=== PATIENT | male | born 1945 | race Caucasian/White ===

== ENCOUNTER → 2024-01-18 09:52 | Outpatient (REF) | payer MEDICARE, OTHER, SELFPAY ==
[2024-01-18 10:52] LABS: % Basophils 0.4 % (0-2); % Eosinophils 1.2 % (0-6); % Immature Granulocytes 0.4 % (0-0.5); % Lymphocytes 20.3 % (20.5-51.1); % Monocytes 7.5 % (1.7-9.3); % Neutrophils 70.2 % (42.2-75.2); Absolute Eosinophils 0.1 10^3/uL (0-0.7); Absolute Lymphocytes 1.5 10^3/uL (1.2-3.4); Absolute Monocytes 0.5 10^3/uL (0.1-0.6); Absolute Neutrophils 5.1 10^3/uL (1.4-6.5); Hematocrit 41.4 % (39.0-52.0); Hemoglobin 14.2 g/dL (13.0-18.0); Mean Corp Hgb Conc. 34.3 g/dL (33.0-37.0); Mean Corpuscular Hgb 31.4 pg (27.0-31.0); Mean Corpuscular Volume 91.6 fL (80.0-94.0); Mean Platelet Volume 10.6 fL (7.4-10.4); Nucleated Red Blood Cells % 0 % (-); Platelet Count 192 10^3/uL (130-400); Red Blood Cell Count 4.52 10^6/uL (4.70-6.10); Red Cell Dist. Width 12.8 % (11.5-14.5); White Blood Cell Count 7.2 10^3/uL (4.8-10.8)
[2024-01-18 12:25] LABS: Urine Albumin Negative (Neg - Trace); Urine Bilirubin Negative (Negative); Urine Character Clear (Clear); Urine Color Yellow; Urine Glucose Negative (Negative); Urine Ketone Negative (Negative); Urine Leukocyte Negative (Negative); Urine Nitrite Negative (Negative); Urine Occult Blood Negative (Negative); Urine Urobilinogen Negative (Neg - 1+)
[2024-01-18 15:02] LABS: ALT (SGPT) 14 U/L (0-50); AST (SGOT) 18 U/L (17-59); Albumin 4.5 g/dl (3.5-5.0); Alkaline Phosphatase 60 U/L (38-126); Blood Urea Nitrogen 16 mg/dl (9-20); Calcium 9.6 mg/dl (8.4-10.2); Carbon Dioxide 29 mmol/L (22-30); Chloride 105 mmol/L (98-107); Glucose 107 mg/dl (70-99); HDL Cholesterol 39 mg/dl; LDL Cholesterol, Calculated 168 mg/dl; Potassium 4.4 mmol/L (3.5-5.1); Sodium 141 mmol/L (135-145); Total Bilirubin 0.9 mg/dl (0.2-1.3); Total Cholesterol 238 mg/dl (50-199); Total Protein 6.6 g/dl (6.3-8.2); Triglyceride 155 mg/dl (10-149); Very Low Density Lipoprotein 31 mg/dl (0-30); eGFR > 60.00
[2024-01-18 15:50] LABS: PSA, Total - Screen 2.41 ng/ml (0.0-4.0); TSH 1.17 uIU/ml (0.47-4.68)
[2024-01-19 12:28] LABS: tTG IgG Antibody 8.2 EU/ml (0-19)
[2024-01-20 00:08] LABS: IgA 51 mg/dl (70-400)
== END ==
LOC: REG 09:52
PROVIDERS: ATTENDING PHYSICIAN Internal Medicine
DX: E78.00 Pure hypercholesterolemia, unspecified (principal); N40.1 Benign prostatic hyperplasia with lower urinary tract symptoms; G47.33 Obstructive sleep apnea (adult) (pediatric); J44.9 Chronic obstructive pulmonary disease, unspecified; K58.0 Irritable bowel syndrome with diarrhea; Z00.00 Encounter for general adult medical examination without abnormal findings; Z12.5 Encounter for screening for malignant neoplasm of prostate
CPT/HCPCS: 36415; 80053; 80061; 81003; 82784; 83516; 84443; 85025; 86231; G0103

== ENCOUNTER → 2024-04-05 09:34 | Outpatient (REF) | payer MEDICARE, OTHER, SELFPAY ==
[2024-04-05 10:48] LABS: % Basophils 0.4 % (0-2); % Eosinophils 1.7 % (0-6); % Immature Granulocytes 0.5 % (0-0.5); % Lymphocytes 20.6 % (20.5-51.1); % Monocytes 7.6 % (1.7-9.3); % Neutrophils 69.2 % (42.2-75.2); Absolute Eosinophils 0.1 10^3/uL (0-0.7); Absolute Lymphocytes 1.6 10^3/uL (1.2-3.4); Absolute Monocytes 0.6 10^3/uL (0.1-0.6); Absolute Neutrophils 5.2 10^3/uL (1.4-6.5); Hematocrit 42.2 % (39.0-52.0); Hemoglobin 14.1 g/dL (13.0-18.0); Mean Corp Hgb Conc. 33.4 g/dL (33.0-37.0); Mean Corpuscular Hgb 29.7 pg (27.0-31.0); Mean Platelet Volume 10.7 fL (7.4-10.4); Nucleated Red Blood Cells % 0 % (-); Platelet Count 209 10^3/uL (130-400); Red Blood Cell Count 4.74 10^6/uL (4.70-6.10); Red Cell Dist. Width 12.9 % (11.5-14.5); White Blood Cell Count 7.5 10^3/uL (4.8-10.8)
[2024-04-05 11:12] LABS: ALT (SGPT) 21 U/L (0-50); AST (SGOT) 21 U/L (17-59); Albumin 4.5 g/dl (3.5-5.0); Alkaline Phosphatase 52 U/L (38-126); Amylase 88 U/L (30-110); Blood Urea Nitrogen 13 mg/dl (9-20); Calcium 9.8 mg/dl (8.4-10.2); Carbon Dioxide 27 mmol/L (22-30); Chloride 102 mmol/L (98-107); Glucose 101 mg/dl (70-99); Lipase 74 U/L (23-300); Potassium 4.5 mmol/L (3.5-5.1); Sodium 143 mmol/L (135-145); Total Bilirubin 0.7 mg/dl (0.2-1.3); Total Protein 6.8 g/dl (6.3-8.2); eGFR > 60.00
[2024-04-05 11:31] LABS: Erythrocyte Sed Rate 16 mm/hour (0-20)
[2024-04-05 23:25] LABS: IgA 59 mg/dl (70-400)
[2024-04-07 16:40] LABS: Endomysial IgA Antibody Titer <1:10 (<1:10)
== END ==
LOC: REG 09:34
PROVIDERS: ATTENDING PHYSICIAN Internal Medicine
DX: R10.84 Generalized abdominal pain (principal); K58.2 Mixed irritable bowel syndrome
CPT/HCPCS: 36415; 80053; 82150; 82784; 83516; 83690; 85025; 85652; 86231

== ENCOUNTER → 2024-04-21 06:57 | Outpatient (REF) | payer MEDICARE, OTHER, SELFPAY | LOC: HWRAD 06:57 | PROVIDERS: ATTENDING PHYSICIAN Internal Medicine | DX: R10.84 Generalized abdominal pain (principal) | CPT/HCPCS: 76700 ==

== ENCOUNTER → 2024-05-23 11:42 | Outpatient (REF) | payer MEDICARE, OTHER, SELFPAY ==
--- NOTE | 2024-05-23 13:48 | CARDSERVLU ---
Echocardiogram with Lumason completed after protocol screening completed. Allergies verified.
Patent IV site: _Left hand____
IV site flushed with 0.9% NaCl pre and post administration.
Diluted bolus method utilized to enhance visualization of ventricular hammond.
Total volume given: __3.0__ mL
Patient tolerated all procedures well without complications.
#22 krzysztof placed left hand. Lumason given. INT d/c'd. pressure held. no bleeding noted.
== END ==
LOC: RCS 11:42
PROVIDERS: ATTENDING PHYSICIAN Student in an Organized Health Care Education/Training Program
DX: R07.9 Chest pain, unspecified (principal)
CPT/HCPCS: 93017; 71046; 93350; Q9950

== ENCOUNTER → 2024-06-08 10:34 | Outpatient (REF) | payer MEDICARE, OTHER, SELFPAY | LOC: RAD 10:34 | PROVIDERS: ATTENDING PHYSICIAN Student in an Organized Health Care Education/Training Program | DX: E78.2 Mixed hyperlipidemia (principal) | CPT/HCPCS: 75571 ==

== ENCOUNTER → 2024-09-26 06:44 | Outpatient (REF) | payer MEDICARE, OTHER, SELFPAY ==
[2024-09-26 12:11] LABS: % Basophils 0.4 % (0-2); % Eosinophils 0.8 % (0-6); % Immature Granulocytes 0.3 % (0-0.5); % Lymphocytes 14.4 % (20.5-51.1); % Monocytes 7.6 % (1.7-9.3); % Neutrophils 76.5 % (42.2-75.2); Absolute Eosinophils 0.1 10^3/uL (0-0.7); Absolute Lymphocytes 1.1 10^3/uL (1.2-3.4); Absolute Monocytes 0.6 10^3/uL (0.1-0.6); Hematocrit 41.3 % (39.0-52.0); Hemoglobin 13.5 g/dL (13.0-18.0); Mean Corp Hgb Conc. 32.7 g/dL (33.0-37.0); Mean Corpuscular Hgb 30.5 pg (27.0-31.0); Mean Corpuscular Volume 93.4 fL (80.0-94.0); Mean Platelet Volume 10.7 fL (7.4-10.4); Nucleated Red Blood Cells % 0 % (-); Platelet Count 192 10^3/uL (130-400); Red Blood Cell Count 4.42 10^6/uL (4.70-6.10); Red Cell Dist. Width 12.9 % (11.5-14.5); White Blood Cell Count 7.8 10^3/uL (4.8-10.8)
[2024-09-26 14:03] LABS: ALT (SGPT) 15 U/L (0-50); AST (SGOT) 18 U/L (17-59); Albumin 4.9 g/dl (3.5-5.0); Alkaline Phosphatase 60 U/L (38-126); Blood Urea Nitrogen 15 mg/dl (9-20); Calcium 9.6 mg/dl (8.4-10.2); Carbon Dioxide 27 mmol/L (22-30); Chloride 106 mmol/L (98-107); Glucose 92 mg/dl (70-99); Potassium 4.5 mmol/L (3.5-5.1); Sodium 144 mmol/L (135-145); Total Bilirubin 0.8 mg/dl (0.2-1.3); eGFR > 60.00
== END ==
LOC: RCS 06:44
PROVIDERS: ATTENDING PHYSICIAN Internal Medicine Cardiovascular Disease; FAMILY PHYSICIAN Internal Medicine
DX: Z00.8 Encounter for other general examination (principal); R93.1 Abnormal findings on diagnostic imaging of heart and coronary circulation; I25.10 Atherosclerotic heart disease of native coronary artery without angina pectoris; E78.00 Pure hypercholesterolemia, unspecified; R94.39 Abnormal result of other cardiovascular function study; E78.2 Mixed hyperlipidemia; J44.9 Chronic obstructive pulmonary disease, unspecified; R06.89 Other abnormalities of breathing; R07.9 Chest pain, unspecified
CPT/HCPCS: 36415; 78452; 80053; 85025; 93017; A9500

== ENCOUNTER 2024-09-27 09:25 | Day surgery (SDC) | payer MEDICARE, OTHER, SELFPAY ==
[2024-09-27] VITALS (14 sets, daily range): BP systolic 125–152; BP diastolic 66–120; BMI 27.6; BMI 28.0
[2024-09-27] MEDS: NSS 269 ML IV (10:30)
[2024-09-27] MEDS: LOW STRENGTH ASPIRIN 81 MG PO (10:31)
--- NOTE | 2024-09-27 12:59 | ITS.CL.CATH ---
[employer] - Catheterization
Cardiac Catheterization
Procedure Report:
CARDIAC CATHETERIZATION REPORT
Date of Procedure: 09/27/2024
Referring: Arnie Ford M.D.
INDICATION: Accelerating angina, abnormal stress test.
PROCEDURE:
1. Left heart catheterization.
2. Coronary angiography.
3. Successful IFR of the proximal LAD.
A total of 41 minutes of procedural/moderate sedation was utilized. An independent biomedical engineering supervisor was present to assist with and help manage the patient's level of consciousness and physiologic status.
ACCESS:
1. 6 Indian right radial artery using a modified Seldinger technique.
CATHETERS:
1. 5 Indian JR4.
2. 5 Indian JL 3.5.
3. 6 Indian JL 3.5 guiding catheter.
HEMODYNAMIC DATA
Weight (kg): 89.4
AO (s/d/x, mmHg): 145/86/114
LV (s/x mmHg): 148/11
LEFT VENTRICULOGRAPHY: Not performed.
CORONARY ANGIOGRAPHY
Dominance: Right.
Left Main: Normal size, bifurcating vessel. There appears to be some ostial tapering, perhaps 40%. No catheter dampening on engagement.
LAD: Normal size vessel giving rise to 1 significant diagonal. There is a tubular, 60-70% lesion spanning the origin of the first diagonal.
Ramus: Congenitally absent.
Circumflex: Large size, nondominant vessel giving rise to 1 obtuse marginal which subsequently bifurcates into an upper and lower branch. There are luminal irregularities throughout the entire marginal and a discrete, 80% lesion in the ostium of
the upper branch of the obtuse marginal.
RCA: Normal size, dominant vessel. There is a 90% lesion in the proximal RCA. There is a 40% lesion in the distal RCA leading into the ostium of the RPDA.
INTERVENTION(S)
1. Successful IFR of the proximal/mid LAD, demonstrating occlusive disease (IFR = 0.88).
Narrative:
The decision was made to perform physiologic testing. The diagnostic catheter was removed over a wire and exchanged for a(n) 6 Indian EBU 3.5 guiding catheter. The guiding catheter was advanced into the ascending aorta and seated in the left main
coronary artery, though this was somewhat difficult to maintain engagement. Additional heparin was given to obtain an ACT greater than 250 seconds. An iFR wire was zeroed outside of the body, then inserted into the guiding sheath. The wire was
advanced and the transducer was normalized just outside of the guiding catheter tip. The wire was advanced into the mid LAD, beyond the 60-70% LAD lesion. Three iFR measurements were taken. The lesion was determined to be occlusive (0.88).
Closure Device: Vascular band.
Radiation (mGy): 426.19
DAP (cm2.Gy): 26.4420
Fluoroscopy time (minutes): 8.7
CONCLUSIONS
1. Right dominant circulation with a 90% lesion in the proximal RCA, a 40% lesion in the distal RCA leading into the ostium of the RPDA, and 80% lesion in the ostium of the upper branch of OM1 and a hemodynamically significant, tubular 60-70%
lesion of the proximal LAD spanning the origin of the first diagonal (IFR = 0.88).
2. Normal filling pressures (LVEDP = 11 mmHg at 89.4 kg).
RECOMMENDATIONS:
1. Expectant management after cardiac catheterization via right radial approach.
2. Limited weight bearing on the right for one week.
3. Consultation with CT surgery regarding optimal revascularization strategy. In this particular case, percutaneous versus surgical revascularization are both viable options.
4. Start amlodipine 2.5 mg daily for updated OMT. Sublingual nitroglycerin has been prescribed.
5. Aggressive secondary prevention with high-dose, high potency statin. Rosuvastatin increased to 20 mg daily. Goal LDL <55.
6. Update echocardiogram.
Copy to: Arnie Ford M.D., Rsuty Marcum M.D.
Alberto Frias, , FACC, FACP
[2024-09-27] MEDS: NORVASC 2.5 MG PO (13:21)
[2024-09-28 08:38] LABS: ACT-LR - POC > 397 Seconds (116-155)
== END 2024-09-27 16:45 | disposition home or self-care (01) ==
LOC: CATH 09:25
PROVIDERS: ATTENDING PHYSICIAN Internal Medicine Cardiovascular Disease; FAMILY PHYSICIAN Internal Medicine; OTHER PHYSICIAN Internal Medicine Cardiovascular Disease
DX: I25.118 Atherosclerotic heart disease of native coronary artery with other forms of angina pectoris (principal); R94.39 Abnormal result of other cardiovascular function study; E78.00 Pure hypercholesterolemia, unspecified; G47.33 Obstructive sleep apnea (adult) (pediatric); N40.0 Benign prostatic hyperplasia without lower urinary tract symptoms; Z87.891 Personal history of nicotine dependence; Z79.82 Long term (current) use of aspirin
CPT/HCPCS: 93799; 99152; 99153; C1894; C1769; C1887; 85347; 93458; Q9967

== ENCOUNTER 2024-10-05 05:09 | Inpatient (IN) | payer MEDICARE, OTHER, SELFPAY ==
[2024-10-02 12:08] VITALS: BMI 27.4
[2024-10-02 12:41] LABS: % Basophils 0.9 % (0-2); % Eosinophils 0.6 % (0-6); % Immature Granulocytes 0.4 % (0-0.5); % Lymphocytes 15.8 % (20.5-51.1); % Monocytes 6.4 % (1.7-9.3); % Neutrophils 75.9 % (42.2-75.2); Absolute Basophils 0.1 10^3/uL (0-0.2); Absolute Lymphocytes 1.1 10^3/uL (1.2-3.4); Absolute Monocytes 0.4 10^3/uL (0.1-0.6); Absolute Neutrophils 5.2 10^3/uL (1.4-6.5); Hematocrit 41.1 % (39.0-52.0); Hemoglobin 13.9 g/dL (13.0-18.0); Mean Corp Hgb Conc. 33.8 g/dL (33.0-37.0); Mean Corpuscular Hgb 31.2 pg (27.0-31.0); Mean Corpuscular Volume 92.4 fL (80.0-94.0); Mean Platelet Volume 10.8 fL (7.4-10.4); Nucleated Red Blood Cells % 0 % (-); Platelet Count 194 10^3/uL (130-400); Red Blood Cell Count 4.45 10^6/uL (4.70-6.10); Red Cell Dist. Width 12.8 % (11.5-14.5); White Blood Cell Count 6.9 10^3/uL (4.8-10.8)
[2024-10-02 12:59] LABS: INR 1.06; PT 14.1 Sec (11.4-14.6)
[2024-10-02 13:00] LABS: APTT 36.6 Sec (23.4-35.0)
[2024-10-02 13:33] LABS: ALT (SGPT) 15 U/L (0-50); AST (SGOT) 17 U/L (17-59); Albumin 4.9 g/dl (3.5-5.0); Alkaline Phosphatase 63 U/L (38-126); Blood Urea Nitrogen 11 mg/dl (9-20); Calcium 9.4 mg/dl (8.4-10.2); Carbon Dioxide 27 mmol/L (22-30); Chloride 105 mmol/L (98-107); Direct Bilirubin 0.2 mg/dl (0.0-0.4); Estimated Creatinine Clearance 93 ml/min; Glucose 103 mg/dl (70-99); Potassium 4.9 mmol/L (3.5-5.1); Sodium 142 mmol/L (135-145); Total Bilirubin 0.8 mg/dl (0.2-1.3); eGFR > 60.00
[2024-10-02 13:39] LABS: Urine Albumin Negative (Neg - Trace); Urine Bilirubin Negative (Negative); Urine Character Clear (Clear); Urine Color Yellow; Urine Glucose Negative (Negative); Urine Ketone Negative (Negative); Urine Leukocyte Negative (Negative); Urine Nitrite Negative (Negative); Urine Occult Blood 2+ (Negative); Urine Urobilinogen Negative (Neg - 1+); Urine pH 6.5 (5.0-9.0)
--- NOTE | 2024-10-02 13:54 | CM ---
Chart reviewed. Met with the patient and his in PAT. Reviewed preoperative and postoperative instructions and restrictions, along with showering guidelines. Gave patient 2 soaps. Patient is independent of ADLS, lives with his in a 2
STH, 4-5 LEONOR, 0 DME. Plan is for the patient to return home with CT Transitional RN.
[2024-10-02 14:00] LABS: Glycohemoglobin (HgbA1c) 5.5 % (4.0-5.6)
[2024-10-02 14:42] LABS: Urine Squamous Cell 0-2 /LPF (Few)
[2024-10-02 14:43] LABS: Urine Amorphous Seen
[2024-10-02 14:44] LABS: Urine Red Blood Cell 0-2 /HPF (0-2); Urine White Cell 0-2 /HPF (0-5)
[2024-10-05] VITALS (17 sets, daily range): BP systolic 86–132; BP diastolic 58–92; BMI 26.9
[2024-10-05] MEDS: MAGNESIUM OXIDE 500 MG PO (05:39)
[2024-10-05] MEDS: PROTONIX 40 MG PO (05:39)
[2024-10-05] MEDS: LOPRESSOR 25 MG PO (05:39)
[2024-10-05] MEDS: BACTROBAN 2% OINTMENT 1 APPLIC NASAL ×2 (05:40→20:20)
--- NOTE | 2024-10-05 05:48 | PTCARENOTE ---
Patient admitted to CVICU. Confirmed 2 CHG showers. CHG cloth bath performed. Lab drawn. Patient clipped. Meds reconciliation confirmed. Admission questions asked. Awaiting CVOR.
--- NOTE | 2024-10-05 06:35 | PTCARENOTE ---
Taken to CVOR @[id number].
[2024-10-05 07:40] LABS: ACT+ - POC 101 Seconds (82-134)
[2024-10-05 08:20] LABS: Urine Albumin 1+ (Neg - Trace); Urine Bilirubin Negative (Negative); Urine Character Clear (Clear); Urine Color Yellow; Urine Glucose Negative (Negative); Urine Ketone Negative (Negative); Urine Leukocyte Negative (Negative); Urine Nitrite Negative (Negative); Urine Occult Blood 4+ (Negative); Urine Specific Gravity 1.015 (<1.030); Urine Urobilinogen Negative (Neg - 1+)
[2024-10-05 08:54] LABS: Urine Amorphous Seen
[2024-10-05 08:55] LABS: Urine White Cell 0-2 /HPF (0-5)
[2024-10-05 09:28] LABS: ACT+ - POC 773 Seconds (82-134)
[2024-10-05 09:49] LABS: B.E. - POC -1.7 mmol/L; Glucose - POC 100 mg/dl (70-99); HCO3 - POC 24 mmol/L (21-28); Hematocrit - POC 38 % PCV (42-52); Hemodilution- POC No; Hemoglobin Calculated - POC 12.9; Ionized Calcium - POC 1.14 mmol/L (1.15-1.33); Lactate - POC 0.48 mmol/L (0.36-0.75); O2 Saturation %Calculated-POC 99.7 % (94-98); PCO2 - POC 41 mmHg (35-48); PO2 - POC 204 mmHg (83-108); POC Comment PRE; Potassium - POC 3.8 mmol/L (3.5-5.1); Sodium - POC 145 mmol/L (136-145); Specimen Type - POC Arterial; pH - POC 7.37 (7.35-7.45)
[2024-10-05 10:27] LABS: B.E. - POC 0.4 mmol/L; Glucose - POC 149 mg/dl (70-99); HCO3 - POC 25 mmol/L (21-28); Hematocrit - POC 39 % PCV (42-52); Hemodilution- POC Yes; Hemoglobin Calculated - POC 13.2; Ionized Calcium - POC 0.96 mmol/L (1.15-1.33); Lactate - POC < 0.30 mmol/L (0.36-0.75); PCO2 - POC 41 mmHg (35-48); PO2 - POC 372 mmHg (83-108); POC Comment CPB; Potassium - POC 4.1 mmol/L (3.5-5.1); Sodium - POC 141 mmol/L (136-145); Specimen Type - POC Arterial
[2024-10-05 10:40] LABS: ACT+ - POC 625 Seconds (82-134)
--- NOTE | 2024-10-05 11:00 | CM ---
Chart reviewed. Patient is in the OR today. Patient is independent of ADLS, lives with his in a 2 STH, 4-5STE, 0 DME. Plan is for the patient to return home with CT Transitional RN. CM to follow
[2024-10-05 11:02] LABS: B.E. - POC 2.3 mmol/L; Glucose - POC 176 mg/dl (70-99); HCO3 - POC 27 mmol/L (21-28); Hematocrit - POC 31 % PCV (42-52); Hemodilution- POC Yes; Hemoglobin Calculated - POC 10.6; Ionized Calcium - POC 0.99 mmol/L (1.15-1.33); Lactate - POC 0.64 mmol/L (0.36-0.75); O2 Saturation %Calculated-POC 99.8 % (94-98); PCO2 - POC 40 mmHg (35-48); PO2 - POC 237 mmHg (83-108); POC Comment CPB; Potassium - POC 5.2 mmol/L (3.5-5.1); Sodium - POC 140 mmol/L (136-145); Specimen Type - POC Arterial; pH - POC 7.44 (7.35-7.45)
[2024-10-05 11:17] LABS: ACT+ - POC 715 Seconds (82-134)
[2024-10-05 11:32] LABS: B.E. - POC 0.2 mmol/L; Glucose - POC 146 mg/dl (70-99); HCO3 - POC 25 mmol/L (21-28); Hematocrit - POC 31 % PCV (42-52); Hemodilution- POC Yes; Hemoglobin Calculated - POC 10.5; Ionized Calcium - POC 1.05 mmol/L (1.15-1.33); Lactate - POC 1.14 mmol/L (0.36-0.75); O2 Saturation %Calculated-POC 99.9 % (94-98); PCO2 - POC 40 mmHg (35-48); PO2 - POC 327 mmHg (83-108); POC Comment CPB; Potassium - POC 4.1 mmol/L (3.5-5.1); Sodium - POC 142 mmol/L (136-145); Specimen Type - POC Arterial; pH - POC 7.41 (7.35-7.45)
[2024-10-05 11:41] LABS: ACT+ - POC > 1003 Seconds (82-134)
[2024-10-05 11:42] LABS: ACT+ - POC 530 Seconds (82-134)
[2024-10-05 12:28] LABS: B.E. - POC -0.7 mmol/L; Glucose - POC 126 mg/dl (70-99); HCO3 - POC 23 mmol/L (21-28); Hematocrit - POC 31 % PCV (42-52); Hemodilution- POC Yes; Hemoglobin Calculated - POC 10.5; Ionized Calcium - POC 1.04 mmol/L (1.15-1.33); Lactate - POC 1.89 mmol/L (0.36-0.75); O2 Saturation %Calculated-POC 99.7 % (94-98); PCO2 - POC 36 mmHg (35-48); PO2 - POC 189 mmHg (83-108); POC Comment WARM; Potassium - POC 4.5 mmol/L (3.5-5.1); Sodium - POC 142 mmol/L (136-145); Specimen Type - POC Arterial; pH - POC 7.43 (7.35-7.45)
[2024-10-05 12:33] LABS: ACT+ - POC 137 Seconds (82-134)
--- NOTE | 2024-10-05 13:03 | W.CVOR.SURPR ---
CVOR Surgeon Immed Pre Op
-
I have examined this patient prior to performance of the scheduled procedure.
The patient's condition is unchanged from the time of the dictated/written History and
Physical and the patient is able to undergo the scheduled procedure.
--- NOTE | 2024-10-05 13:03 | W.IMMPOSTOP ---
Addendum entered and electronically signed by Boogie Veloz MD 10/05/24 15:00:
[id number]
Original Note:
Surgical Immed Post Op Note
-
CARDIAC SURGERY OPERATIVE NOTE:
Preoperative Dx:
MVCAD
Escalating/ unstable angina
Postoperative Dx:
Same
Procedures:
1) Median sternotomy
2) Takedown of SUSU (narrow pedicle)
3) Endoscopic harvest/prep of RLE GSV
4) Pericardial patch repair of RA
5) CABG x 4 (SUSU to LAD, GSV to RPDA, sGSV to OM upper & lower branches)
6) ELAA (45mm AtriClip)
Surgeon:
Boogie Veloz M.D.
Assistants:
Michel Bolton P.A.-C.; optometry assistant throughout
Jonelle Tabor P.A.-C.; endoscopic harvest/prep of RLE GSV
Anesthesia:
Zbigniew Reid M.D. and Sierra ClemonsR.N.A.
Perfusion:
Sierra TiradoCGhislaineP.; XC: 90min, CPB: 139min
Findings:
SUSU was healthy appearing conduit w/ very brisk flow; slightly small ELD at 2.25mm
GSV was healthy appearing conduit w/ ELD 3.0-3.5mm
RA tissue was extremely friable, after venous cannulation w/ typical repositioning of the venous cannula, a large tear occurred on the medial/cephalad margin of the RA toward to the right AV groove. CPB established and RA was patch repaired w/
pericardium and running 6-0 prolene suture w/ good result.
LAD was visible on the epicardial surface, no sig calcifications at distal midpoint anastomosis, ELD congruent w/ SUSU at ~2.25mm
OM branches were both visible on the epicardial surface, the inferior branch was larger (~2.75mm) than the upper branch (~1.65mm) - bypass performed to both in sequential fashion
RPDA was visible on the epicardial surface, no sig calcifications at proximal third anastomosis, ELD 2.75mm
MARISSA was large and had windsock morphology
Transient pacing required prior to re-establishment of sustained sinus
Aortic cannulation site required repair w/ 2 4-0 prolene pledgetted sutures post decannulation
Excellent flow in all grafts
Post-ALEXANDER: normal biventricular function, no significant VHD, MARISSA confirmed excluded
Complications:
No significant
RA required repair as did the aortic cannulation site
Transfusions:
None
Implants:
Epicardial V-wire x 1
[address]
CT x 4 (B/L pleural, inferior mediastinal, superior mediastinal)
Sternal wires x 8
Sternal 'X' plate w/ 8 - 12mm screws
Sternal 'Square' plate w/ 4 - 10mm screws
Condition:
62 isoelectric sinus; 132/80, CVP 19, 100%
GTTS: nicardipine 2.5, precedex 0.5
Stable/guarded to CVICU
[2024-10-05 13:08] LABS: B.E. - POC -2.3 mmol/L; Glucose - POC 102 mg/dl (70-99); HCO3 - POC 23 mmol/L (21-28); Hematocrit - POC 30 % PCV (42-52); Hemodilution- POC Yes; Hemoglobin Calculated - POC 10.1; Ionized Calcium - POC 1.21 mmol/L (1.15-1.33); Lactate - POC 1.23 mmol/L (0.36-0.75); PCO2 - POC 39 mmHg (35-48); PO2 - POC 529 mmHg (83-108); POC Comment POST; Potassium - POC 3.7 mmol/L (3.5-5.1); Sodium - POC 146 mmol/L (136-145); Specimen Type - POC Arterial; pH - POC 7.37 (7.35-7.45)
[2024-10-05 13:09] LABS: ACT+ - POC 129 Seconds (82-134)
[2024-10-05 13:49] LABS: Glucose - Point of Care 107 mg/dl (70-99)
[2024-10-05 13:55] LABS: B.E. -0.3 mmol/L; Ionized Calcium 1.15 mMOL/L (1.15-1.33); PCO2 37 mmHg (35-48); PO2 166 mmHg (83-108); Potassium 3.7 mMOL/L (3.5-5.1); Sodium 137 mMOL/L (136-145); pH 7.42 (7.35-7.45)
--- NOTE | 2024-10-05 13:57 | W.PN.UPDATE ---
Update Note
Progress Note Update
79 year old male electively admitted 10/05/24 for CABG
IV fluids:
Crystalloid:�
U.O.:� 700
Blood:� none
Wires:� bipolar V-wire
Drips: Insulin, Precedex
�
NEURO: sedated, pupils +2mm B/L
RESP: #8OT @23cm> 550/40%/14/5. Lungs clear B/L. 2 mediastinal (0cc on arrival) and R/L pleural (0cc on arrival) chest tubes to -20cm suction. Sanguineous drainage, no air leak, no crepitus
CV: RRR +S1, S2, no S3, no�rub, no murmur. Aquacell to median sternotomy. RIJ w/Slik
ABD: round, soft, no BS
EXT: no edema, +2/4 DP pulses B/L, no femoral bruit, RLE FLORESITA wrap intact; left radial A-line intact
: Hathaway with clear yellow urine
�,
A/P: POD #0 s/p CABG x 4 (SUSU to LAD, GSV to RPDA, sGSV to OM upper & lower branches), ELAA (45mm AtriClip), Pericardial patch repair of RA
ALEXANDER: EF�55-60%
- wean and extubate
- ok to pull bipolar V-wire prior to chest tube removal
# CAD
- will require ASA, Plavix, statin, Zetia. beta-mitch
�
# acute surgical blood loss anemia-expected
- trend CBC
�
# Depression
- continue Sertraline
�
# BPH
- resume�Finesteride as BP permits
[2024-10-05 14:02] LABS: Hematocrit 32.4 % (39.0-52.0); Hemoglobin 11.2 g/dL (13.0-18.0); Platelet Count 140 10^3/uL (130-400)
--- NOTE | 2024-10-05 14:04 | PTCARENOTE ---
received pt from the CVOR into 226, sinus rhythm on tele w HR 60-70, right radial aminata leveled and zeroed BP 110/64, + peripheral pulses, right IJ cordis w slick, CVP 12. Epicardial pacing wire set to a back up 30/10. Lungs diminished, ETT #8/
right lip, VENT SETTINGS: SIMV 40%/550/14/+5, POX 99%, CT x4 w red drainage, melendez draining yellow.
DRIPS: Precedex 0.5
Cardene 2.5
[2024-10-05 14:10] LABS: Blood Urea Nitrogen 15 mg/dl (9-20); Estimated Creatinine Clearance 93 ml/min; Glucose 106 mg/dl (70-99); Magnesium 2.9 mg/dl (1.6-2.3)
[2024-10-05 14:14] LABS: INR 1.44; PT 18.1 Sec (11.4-14.6)
[2024-10-05] MEDS: KCL 50 IV ×2 (14:14→15:05)
[2024-10-05 14:15] LABS: APTT 33.6 Sec (23.4-35.0)
[2024-10-05] MEDS: ANCEF 10 IV ×2 (14:15→14:16)
[2024-10-05] MEDS: NSS 500 IV (14:15)
[2024-10-05] MEDS: NEURONTIN PO ×2 (14:15→15:45)
[2024-10-05] MEDS: TYLENOL PO (14:16)
[2024-10-05] MEDS: CALCIUM GLUCONATE 100 IV (14:55)
[2024-10-05 15:05] LABS: Glucose - Point of Care 135 mg/dl (70-99)
--- NOTE | 2024-10-05 15:13 | CON.INTV ---
Consultation
Consultation Request
Date/Time Consultation Requested: 10/05/2024
Date/Time Consultation Performed: 10/05/2024
Requesting Provider: Boogie Veloz
Performing Provider: Fidencio Garcia
Reason for Consultation: Post CABG
Medical History
-
Chief Complaint: Chest discomfort
History of Present Illness:
Patient is a 79-year-old gentleman with history of hyperlipidemia, mild COPD who had mild exertional chest discomfort last year and had a stress test which was unremarkable. In view of persistent symptoms patient subsequently had a CT coronary
artery with elevated calcium score which was followed by cardiac catheterization which showed significant coronary artery disease. He was subsequently referred to cardiothoracic surgery for further input. Patient was admitted to the hospital for
an elective coronary artery bypass graft and postsurgery was admitted to CVICU. Corporate Sales Representative consult was requested for further input. During my evaluation, patient had been off all pressors and off sedation and had started to wake up. He was
placed on pressure support trial which she was tolerating well.
Past medical history. Hyperlipidemia, osteoarthritis, BPH, mild obstructive sleep apnea, mild COPD, osteoporosis.
Past surgical history. Hernia repair, inguinal, bilateral. Cataract surgery.
Family history. Mother had small cell lung cancer. Maternal aunt also had lung cancer.
Social history. Patient is a former smoker, quit in 1980.
Allergies / Home Medications
Allergies
Allergy/AdvReac Type Severity Reaction Status Date / Time
shellfish derived Allergy Severe Hives Verified 09/27/24 10:27
iodine Allergy Unknown Unknown Verified 09/27/24 10:27
NOT.[id number] - Not Allergy Unknown Uncoded 09/27/24 10:28
Converted 85. See Text.
Home Medications
�Medication �Instructions �Recorded �Confirmed �Last Taken �Type
Lactobacillus acidophilus 10 10,000 mmu cells PO DAILY 09/27/24 09/27/24 09/30/24 08:00 History
billion cell capsule (Probiotic)
Vital Liver Support 1 cap PO DAILY 09/27/24 09/30/24 08:00 History
Vitamin Tocotrienols 125 mg PO DAILY 09/27/24 09/27/24 09/30/24 08:00 History
amlodipine 2.5 mg tablet 2.5 mg PO DAILY #30 tabs 09/27/24 10/02/24 08:00 Rx
apple cider vinegar 300 mg tablet 300 mg PO DAILY 09/27/24 09/27/24 09/30/24 08:00 History
ascorbic acid (vitamin C) 500 mg 500 mg PO DAILY 09/27/24 09/27/24 07/07/24 08:00 History
tablet (Vitamin C)
aspirin 81 mg tablet 81 mg PO DAILY 09/27/24 09/27/24 10/04/24 08:00 History
cholecalciferol (vitamin D3) 50 50 mcg PO DAILY 09/27/24 09/27/24 07/07/24 08:00 History
mcg (2,000 unit) capsule (Vitamin
D3)
coQ10 (ubiquinol) 100 mg capsule 100 mg PO DAILY 09/27/24 09/27/24 09/30/24 18:00 History
finasteride 5 mg tablet 5 mg PO DAILY 09/27/24 09/27/24 10/04/24 23:00 History
metoprolol succinate 25 mg 12.5 mg PO DAILY 09/27/24 09/27/24 10/04/24 18:00 History
tablet,extended release 24 hr
nitroglycerin 0.4 mg sublingual 0.4 mg sublingual [id number] PRN 09/27/24 Unknown Rx
tablet chest pain #25 tabs
rosuvastatin 20 mg tablet 20 mg PO DAILY #30 tabs 09/27/24 10/04/24 23:00 Rx
sertraline 100 mg tablet 100 mg PO DAILY 09/27/24 09/27/24 10/04/24 23:00 History
Review of Systems
-
Unable to Obtain full review of systems at this time due to: Patient Intubation
Vitals / Labs / Diagnostic Testing
Vital Signs
Temp Pulse Resp BP Pulse Ox
96 F L 62 14 91/66 98
10/05/24 15:00 10/05/24 15:00 10/05/24 15:00 10/05/24 15:00 10/05/24 15:00
Lab Data
10/05/24 13:46
Laboratory Results
10/05/24
13:46
PT 18.1 H
INR 1.44
APTT 33.6
pH 7.42
pCO2 37
pO2 166 H
HCO3 24.0
O2 Delivery Level
Microbiology
10/02/24 12:21 Nose MRSA Screen - Final
No Methicillin Resistant Staphylococcus aureus isolated.
Diagnostic Testing:
Physical Exam
-
HEENT: Normocephalic
Cardiovascular: S1/S2
Respiratory: Clear and Non-Labored Respirations
GI: Soft and Non Distended
Neurology: Awake
Skin: Warm
General: Comfortable
Assessment
-
Patient is a 79-year-old gentleman with history of coronary artery disease, s/p CABG x 4, left atrial appendage exclusion, POD #0
Off pressors now
ECHO reviewed with normal EF
Management of chest tubes per primary service
Intubated/off sedation. Tolerating PSV/CPAP 5/5 well, tidal volumes 450ml+, RR 18, anticipate extubation soon.
Pain control
RASS goal of 0 to -1
ABG(s) reviewed. 7.42, 37, 166.
CXR with no obvious opacities/infiltrates, low lung volumes, ETT in good position, lines/tubes in place
Extubate per protocol
Maintain supplement oxygen as needed
Aspiration precautions
Encouraged incentive spirometry, OOB/ambulation/early mobility
Advance diet as tolerated following extubation
GI prophylaxis: Protonix
Monitor critical I/O's
Hathaway/chest tube output
Hb/platelets postoperatively awaited
Trend CBC for now
Can transfuse if indicated for Hb <7, plt <50 in surgical patients
DVT prophylaxis including SCDs
Insulin protocol initiated and ongoing
Transition to SQ/off as indicated per team
Other medial diagnoses:
-ISRAEL, mild. On Home CPAP, typical EPAP 8-5 cm of H2O. Patient brought his own unit. If drowzy post extubation, recommend CPAP
-Mild obstructive airway disease(COPD), ex-smoker. Follows up with Dr. Romano at [facility]. PRN Albuterol, rare use at home. Resume out patient follow up
Critical Care time 61 mins -- The patient is admitted for acute critical illness for the treatment of vital organ failure and/or prevention of further life-threatening conditions. Total care includes time spent in review of history, physical exam,
medications, hemodynamic/ventilator parameters, laboratory data, imaging and discussion with house staff, pharmacy, respiratory therapy, jig bore operator, and nursing.
Data:
ALEXANDER 09/2024: Normal left ventricular systolic function with LVEF of 60-65%. No regional
wall motion abnormalities.
Normal right ventricular function.
Functionally normal aortic valve.
Normal tricuspid valve.
Trace to mild mitral regurgitation.
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
Normal left atrial appendage.
ECHO 07/2024: Normal biventricular size and systolic function without regional wall motion abnormality.
No significant valvular disease.
No significant change since the prior study of 08/30/2021.
Cardiac Cath 09/2024: 1. Right dominant circulation with a 90% lesion in the proximal RCA, a 40% lesion in the distal RCA leading into the ostium of the RPDA, and 80% lesion in the ostium of the upper branch of OM1 and a hemodynamically
significant, tubular 60-70% lesion of the proximal LAD spanning the origin of the first diagonal (IFR = 0.88).
2. Normal filling pressures (LVEDP = 11 mmHg at 89.4 kg).
CXR 09/2024: Unremarkable
CT Chest 09/2024: 1. No CT evidence for an acute cardiopulmonary process.
2. Mild centrilobular emphysema.
4. Moderate coronary artery calcifications.
[2024-10-05] MEDS: PACERONE PO (15:45)
--- NOTE | 2024-10-05 15:47 | PTCARENOTE ---
pt placed on CPAP wean by RT at 15:30
[2024-10-05 16:03] LABS: B.E. -1.8 mmol/L; HCO3 23.1 mmol/L (21-28); Ionized Calcium 1.18 mMOL/L (1.15-1.33); PCO2 39 mmHg (35-48); PO2 124 mmHg (83-108); Potassium 4.8 mMOL/L (3.5-5.1); Sodium 136 mMOL/L (136-145); pH 7.38 (7.35-7.45)
[2024-10-05 16:04] LABS: Glucose - Point of Care 118 mg/dl (70-99)
[2024-10-05] MEDS: LR 250 ML IV ×2 (16:09→17:10)
--- NOTE | 2024-10-05 16:15 | PTCARENOTE ---
pt extubated to 6L NC, pox 98%.
--- NOTE | 2024-10-05 16:18 | RESPNOTE ---
Respiratory: patient extubated @1615 without incident. No stridor, no wheeze.
--- NOTE | 2024-10-05 16:37 | W.PN.CD ---
Addendum entered and electronically signed by Houston Carrero MD 10/07/24 09:54:
I saw and examined the patient.
The PACKAGING SALES REPRESENTATIVE's note was reviewed and I agree with the note.
Comment: Cont routine post-op care
Original Note:
Today's Communication / Plan
-
Close post-op monitoring and care per CVICU/CT surgery protocol
Impression / Plan
-
79 y/o male (patient of Dr. Ford) with dyslipidemia, COPD, and multivessel CAD who is now s/p CABG.
CAD:
-s/p CABG x 4 (SUSU to LAD, GSV to RPDA, sGSV to OM upper & lower branches), ELAA (45mm AtriClip), Pericardial patch repair of RA, Dr. Veloz 10/05/24
-extubated, on O2
-CT's, al, pacer wire in place
-post-op EKG and tele SR
-intra-op ALEXANDER EF 60-65%
-ASA, statin, BB
Dyslipidemia:
-statin
COPD:
-mild, stable without wheezing
Physical Exam
Vital Signs/Labs
Vital Signs
Temp Pulse Resp BP Pulse Ox
97 F 73 25 90/63 97
10/05/24 16:00 10/05/24 16:15 10/05/24 16:15 10/05/24 16:00 10/05/24 16:15
10/05/24 13:46
PT 18.1 Sec (11.4-14.6) H 10/05/24 13:46
INR 1.44 10/05/24 13:46
APTT 33.6 Sec (23.4-35.0) 10/05/24 13:46
Magnesium 2.9 mg/dl (1.6-2.3) H 10/05/24 13:46
Physical Exam
Constitutional: No acute distress
EENT: Anicteric
Cardiovascular: Rhythm & rate is regular
Respiratory: Respiratory effort normal, Lungs clear to auscul. and Other (on O2 by NC)
Neuro/Psych: Alert
Other: Skin (midsternal incision CDI)
Data Reviewed
-
Date of Service: October 05, 2024
EKG: Tracing Personally Visualized and interpreted (SR) and Other (SR)
Echo: Report Reviewed by me (intra-op ALEXANDER EF as noted)
Labs: Labs Reviewed by me
[2024-10-05] MEDS: OFIRMEV 100 IV (16:44)
[2024-10-05 17:07] LABS: Glucose - Point of Care 96 mg/dl (70-99)
[2024-10-05] MEDS: NEURONTIN 100 MG PO ×2 (17:37→21:54)
[2024-10-05] MEDS: LOW STRENGTH ASPIRIN 81 MG PO (17:38)
[2024-10-05 17:42] LABS: Hematocrit 32.5 % (39.0-52.0); Hemoglobin 11.4 g/dL (13.0-18.0); Platelet Count 165 10^3/uL (130-400)
[2024-10-05 17:50] LABS: Glucose - Point of Care 98 mg/dl (70-99)
[2024-10-05] MEDS: DILAUDID 0.5 MG IV (17:53)
[2024-10-05 19:55] LABS: Glucose - Point of Care 108 mg/dl (70-99)
[2024-10-05] MEDS: ANCEF 5 IV (20:12)
[2024-10-05] MEDS: SENOKOT-S 1 TABLET PO (20:13)
[2024-10-05] MEDS: ROXICODONE 5 MG PO (20:13)
[2024-10-05] MEDS: TYLENOL 1000 MG PO (21:54)
[2024-10-05] MEDS: LIPITOR 40 MG PO (21:54)
[2024-10-05 21:58] LABS: Glucose - Point of Care 99 mg/dl (70-99)
[2024-10-05] MEDS: TORADOL 15 MG IV (22:54)
--- NOTE | 2024-10-05 23:00 | PTCARENOTE ---
Received pt from [facility]. RN Iris is on orientation until 2299 and is assigned to pt as well. Pt is s/p of CABGx4 and MARISSA clip with Dr. Veloz. pt is AAOx4, 11/21 pain, see MAR for pain management. pt is resting comfortably in bed. NSR on monitor.
VSS. heart sounds and rub audible, radial and DP pulses palpable, temp epicardial V-wires are set to VVI 30/10/2. lungs diminished at b/l bases, spo2 100% on 4LNC, pt was extubated at 1615, x2 MS and right/left pleural CT to -20 wall suction, no air
leaks, no tidaling, no crepitus. hypoactive BS x4 quadrants, abdomen soft non tender. pr voiding clear yellow urine via melendez catheter. right IJ cordis/slick, right radial A-line, and PIV, all maintained, leveled, and zeroed. insulin gtt infusing.
surgical sites maintained. call ariel within reach. will continue to monitor.
[2024-10-05 23:57] LABS: Glucose - Point of Care 115 mg/dl (70-99)
[2024-10-06] VITALS (34 sets, daily range): BP systolic 79–123; BP diastolic 50–69; PULSE 78; O2SAT 98; BMI 27.2
--- NOTE | 2024-10-06 01:51 | W.PN.CT ---
Today's Communication / Plan
-
-POD #1
-on 5 L NC, shallow breathing from pain, down to 2 L this AM
-BP at goal SBP < 130, off cardene
-CT outputs: 2 meds 45/140, 2 pleural 50/145 in 12/24 hrs
-UOP 490/1265 in 12/24 hrs
-long Qtc 480ms - follow, check ECG in am
-de-lined
-continue insulin
-current meds (asa, lipitor, Plavix, ppi)
-multimodal pain management
-encourage IS, OOB
Assessment / Plan
-
MVCAD s/p CABG x 4 (SUSU to LAD, GSV to RPDA, sGSV to OM upper & lower branches), ELAA (45mm AtriClip), Pericardial patch repair of RA 10/05/[address] Veloz POD #1
ALEXANDER: EF�60%, normal biventricular function, no significant VHD, MARISSA confirmed excluded
EKG NSR with 1st degree block, PAC, QTc 480 ms
-MVCAD
-HLD
-OA
-Depression
-BPH
-ISRAEL on CPAP
-mild COPD
-IBS
-pre-diabetic
acute blood loss anemia - stable
acute post op atelectasis
acute post op cardiac rub /pericarditis
Subjective
-
Date of Service: October 06, 2024
Objective Data
-
PT 18.1 Sec (11.4-14.6) H 10/05/24 13:46
INR 1.44 10/05/24 13:46
APTT 33.6 Sec (23.4-35.0) 10/05/24 13:46
Vital Signs
Vital Signs
Temp Pulse Resp BP Pulse Ox
99.3 F 73 22 103/62 98
10/06/24 01:00 10/06/24 01:10 10/06/24 01:10 10/06/24 01:00 10/06/24 01:10
CT Intake/Output/Weight
10/05/24 10/05/24 10/06/24
06:59 18:59 06:59
Intake Total 764.7 / 1129.9 365.2 / 1129.9
Output Total 965 / 1420 455 / 1420
Balance -200.3 / -290.1 -89.8 / -290.1
SaO2: 98
Physical Exam
-
General: Awake and Oriented
Cardiovascular: Regular rate & rhythm and Rub
Respiratory: Clear and Equal
Sternum: Stable
Incision: Clean, Dry and Intact
Extremities: No Edema and No Erythema
Data Reviewed
-
Lab Results: Results Reviewed
Medications: Active Meds Reviewed
Chest X-Ray: Report Reviewed
ECG: Report Reviewed
[2024-10-06 02:12] LABS: Glucose - Point of Care 88 mg/dl (70-99)
[2024-10-06 02:33] LABS: Hematocrit 32.1 % (39.0-52.0); Hemoglobin 11.1 g/dL (13.0-18.0); Mean Corp Hgb Conc. 34.6 g/dL (33.0-37.0); Mean Corpuscular Hgb 31.7 pg (27.0-31.0); Mean Corpuscular Volume 91.7 fL (80.0-94.0); Mean Platelet Volume 11.3 fL (7.4-10.4); Platelet Count 159 10^3/uL (130-400); Red Cell Dist. Width 12.9 % (11.5-14.5); White Blood Cell Count 15.3 10^3/uL (4.8-10.8)
[2024-10-06 02:56] LABS: Blood Urea Nitrogen 15 mg/dl (9-20); Calcium 8.2 mg/dl (8.4-10.2); Carbon Dioxide 23 mmol/L (22-30); Chloride 108 mmol/L (98-107); Estimated Creatinine Clearance 93 ml/min; Glucose 86 mg/dl (70-99); Magnesium 2.3 mg/dl (1.6-2.3); Potassium 4.3 mmol/L (3.5-5.1); Sodium 139 mmol/L (135-145); eGFR > 60.00
--- NOTE | 2024-10-06 03:30 | PTCARENOTE ---
Pt assessment unchanged. NSR on monitor. VSS. labs drawn, EKG obtained. pt delined.
[2024-10-06 03:52] LABS: Glucose - Point of Care 97 mg/dl (70-99)
[2024-10-06] MEDS: TORADOL 15 MG IV ×2 (04:54→12:01)
[2024-10-06] MEDS: ANCEF 5 IV ×2 (04:54→12:02)
[2024-10-06] MEDS: TYLENOL 1000 MG PO ×3 (04:54→22:44)
[2024-10-06 06:01] LABS: Glucose - Point of Care 111 mg/dl (70-99)
--- NOTE | 2024-10-06 07:42 | W.PN.ANS.POP ---
Anesthesia Post Operative
- Anesthesia Post Op Note
Vital Signs Stable-See Nursing Note: Yes
Airway Patent: Yes
Adequate Pain Control: Yes
Change in Mental Status: No
Current Postoperative Nausea & Vomiting: No
Anesthesia Complications: No
General Anesthetic Recall: No
Unplanned Admission: No
Post Op Hydration Adequate: Yes
[2024-10-06 08:16] LABS: Glucose - Point of Care 97 mg/dl (70-99)
[2024-10-06] MEDS: SENOKOT-S 1 TABLET PO ×2 (08:23→20:21)
[2024-10-06] MEDS: LOW STRENGTH ASPIRIN 81 MG PO (08:23)
[2024-10-06] MEDS: PLAVIX 75 MG PO (08:23)
[2024-10-06] MEDS: PROTONIX 40 MG PO (08:23)
[2024-10-06] MEDS: MAGNESIUM OXIDE 500 MG PO ×2 (08:23→20:20)
[2024-10-06] MEDS: VITAMIN C 500 MG PO (08:23)
[2024-10-06] MEDS: NEURONTIN 100 MG PO ×3 (08:23→22:44)
[2024-10-06] MEDS: FEOSOL 325 MG PO (08:24)
[2024-10-06] MEDS: BACTROBAN 2% OINTMENT 1 APPLIC NASAL ×2 (08:24→20:20)
[2024-10-06] MEDS: LIDOCAINE 4% PATCH 1 PATCH TOPICAL (08:24)
--- NOTE | 2024-10-06 08:24 | W.PN.CD ---
Today's Communication / Plan
-
continue ASA, plavix, statin, BB
trend tele
Impression / Plan
-
79 y/o male (patient of Dr. Ford) with dyslipidemia, COPD, and multivessel CAD who is now s/p CABG.
CAD:
-s/p CABG x 4 (SUSU to LAD, GSV to RPDA, sGSV to OM upper & lower branches), ELAA (45mm AtriClip), Pericardial patch repair of RA, Dr. Veloz 10/05/24
-post-op EKG and tele: sinus
-intra-op ALEXANDER EF 60-65%
-continue ASA, plavix, statin, BB
Dyslipidemia:
-continue statin
Physical Exam
Vital Signs/Labs
Vital Signs
Temp Pulse Resp BP Pulse Ox
99.7 F 74 16 106/58 96
10/06/24 03:52 10/06/24 06:00 10/06/24 06:00 10/06/24 06:00 10/06/24 06:00
10/05/24 10/06/24 10/07/24
06:59 06:59 06:59
Actual Weight 87.4 kg 88.3 kg
10/06/24 02:02
10/06/24 02:02
PT 18.1 Sec (11.4-14.6) H 10/05/24 13:46
INR 1.44 10/05/24 13:46
APTT 33.6 Sec (23.4-35.0) 10/05/24 13:46
Magnesium 2.3 mg/dl (1.6-2.3) 10/06/24 02:02
Physical Exam
Constitutional: No acute distress and Comfortable
EENT: Moist mucous membranes
Cardiovascular: Rhythm & rate is regular, Pedal edema is absent, JVD pressure is normal and Systolic murmur absent
Respiratory: Respiratory effort normal and Lungs clear to auscul.
Neuro/Psych: AO x 3
Data Reviewed
-
Date of Service: October 06, 2024
EKG: Other (Tele: SR 70s)
Labs: Labs Reviewed by me
[2024-10-06] MEDS: PACERONE 200 MG PO ×3 (08:25→22:44)
[2024-10-06] MEDS: CALCIUM GLUCONATE 100 IV (09:16)
[2024-10-06 10:27] LABS: Glucose - Point of Care 105 mg/dl (70-99)
--- NOTE | 2024-10-06 10:32 | CM ---
Chart reviewed. Patient is OOB sitting in the chair, at bedside. Patient is independent of ADLS, lives with his in a 2 STH, 4-5 LEONOR, 0 DME. Plan is for the patient to return home with CT Transitional RN
--- NOTE | 2024-10-06 10:32 | PTCARENOTE ---
assumed care of pt from previous shift RN, sinus rhythm on tele, BP soft, pt asymptomatic, instructed to administer 250ml LR per CT GREGOR. Lungs diminished, pox 95% on RA, coughing and deep breathing encouraged. +bs, tolerating PO intake. Pt remains
DTV. Surgical sites stable. Pacing wires insulated. CTx 4 w minimal amount of drainage. Plan of care reviewed w pt and questions encouraged.
--- NOTE | 2024-10-06 11:36 | W.PN.INTV ---
Today's Communication / Plan
Recommendations
- Continue incentive spirometry
- Resume home CPAP tonight
- As needed albuterol as needed
- Once patient is transferred out of ICU, wool tamper service will sign off, please call as needed
Assessment
-
Patient is a 79-year-old gentleman with history of coronary artery disease, s/p CABG x 4, left atrial appendage exclusion, POD #1
Off pressors now
ECHO reviewed with normal EF
Management of chest tubes per primary service
Patient is extubated, doing well on room air.
CXR with mild bibasilar atelectasis, continue incentive spirometry
Aspiration precautions
Encouraged incentive spirometry, OOB/ambulation/early mobility
Advance diet as tolerated following extubation
GI prophylaxis: Protonix
Monitor critical I/O's
Hathaway/chest tube output
Hb/platelets postoperatively awaited
Trend CBC for now
Can transfuse if indicated for Hb <7, plt <50 in surgical patients
DVT prophylaxis including SCDs
Insulin protocol initiated and ongoing
Transition to SQ/off as indicated per team, anticipate transition later today
Other medial diagnoses:
-ISRAEL, mild. On Home CPAP, typical EPAP 8.5 cm of H2O. Patient brought his own unit, and plans to be used tonight
-Mild obstructive airway disease(COPD), ex-smoker. Follows up with Dr. Romano at [facility]. PRN Albuterol, rare use at home. Resume out patient follow up
Critical Care time 45 mins -- The patient is admitted for acute critical illness for the treatment of vital organ failure and/or prevention of further life-threatening conditions. Total care includes time spent in review of history, physical exam,
medications, hemodynamic/ventilator parameters, laboratory data, imaging and discussion with house staff, pharmacy, respiratory therapy, car inspection and repair manager, and nursing.
Data:
ALEXANDER 09/2024: Normal left ventricular systolic function with LVEF of 60-65%. No regional
wall motion abnormalities.
Normal right ventricular function.
Functionally normal aortic valve.
Normal tricuspid valve.
Trace to mild mitral regurgitation.
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
Normal left atrial appendage.
ECHO 07/2024: Normal biventricular size and systolic function without regional wall motion abnormality.
No significant valvular disease.
No significant change since the prior study of 08/30/2021.
Cardiac Cath 09/2024: 1. Right dominant circulation with a 90% lesion in the proximal RCA, a 40% lesion in the distal RCA leading into the ostium of the RPDA, and 80% lesion in the ostium of the upper branch of OM1 and a hemodynamically
significant, tubular 60-70% lesion of the proximal LAD spanning the origin of the first diagonal (IFR = 0.88).
2. Normal filling pressures (LVEDP = 11 mmHg at 89.4 kg).
CXR 09/2024: Unremarkable
CT Chest 09/2024: 1. No CT evidence for an acute cardiopulmonary process.
2. Mild centrilobular emphysema.
4. Moderate coronary artery calcifications.
Subjective Dataa
Subjective Data
Date of Service:
Date of Service: October 06, 2024
Subjective:
Patient lying in bed, in no acute distress. No new pulmonary complaints.
Review of Systems
Genitourinary: Other (All 14 systems reviewed and negative except as stated above in the history of present illness.)
Objective Data
Data Reviewed
Vital Signs / I&O / Oxygen:
Vital Signs
Temp Pulse Resp BP Pulse Ox
98.2 F 80 16 89/56 94
10/06/24 10:00 10/06/24 11:00 10/06/24 10:00 10/06/24 11:00 10/06/24 10:55
Intake and Output
10/05/24 10/06/24 10/07/24
06:59 06:59 06:59
Intake Total 1454.6 / 1454.6 372.8 / 372.8
Output Total 1595 / 1595
Balance -140.4 / -140.4 362.8 / 362.8
SaO2 [SIMV] 99
SaO2 94
Nasal Cannula flow liters per 2
minute
Physical Exam
HEENT: Normocephalic
Cardiovascular: S1-S2
Respiratory: Clear and Non-Labored Respirations
GI: Non Distended
Neurology: Awake, Alert and Oriented
Skin: Warm
Labs/Micro/Reports
Lab Data
10/06/24 02:02
10/06/24 02:02
Laboratory Results
10/05/24 10/05/24
13:46 15:55
PT 18.1 H
INR 1.44
APTT 33.6
pH 7.42 7.38
pCO2 37 39
pO2 166 H 124 H
HCO3 24.0 23.1
O2 Delivery Level
Microbiology
10/02/24 12:21 Nose MRSA Screen - Final
No Methicillin Resistant Staphylococcus aureus isolated.
[2024-10-06] MEDS: ProAmatine 5 MG PO ×2 (12:02→16:17)
--- NOTE | 2024-10-06 12:15 | PTCARENOTE ---
PRN midodrine administered as ordered. Pt tolerated CR.
[2024-10-06 12:21] LABS: Glucose - Point of Care 94 mg/dl (70-99)
--- NOTE | 2024-10-06 13:15 | PTCARENOTE ---
CT dressing changed, pacing wire site cleansed w CHG.
[2024-10-06] MEDS: NSS IV (14:42)
[2024-10-06] MEDS: ROXICODONE 5 MG PO (20:34)
--- NOTE | 2024-10-06 21:00 | PTCARENOTE ---
Patient received OOB in chair watching television. Patient A+A+Ox3. No neurological deficits noted. Patient assisted to bathroom with assist x1. Steady gait. No c/o headache, dizziness or lightheadedness. Minimal Void. No BM. Positive
flatus. Patient assisted to bed. Room air. SpO2 96%. No c/o SOB. Four chest tubes - Mediastinal x2 and Right and Left Pleural - Intact and patent - 20ml red drainage - No air leak - Dressing intact. Sinus Rhythm. Heart rate 80's. Blood
pressure 123/59 (78). V-Wire insulated. No c/o chest pain, pressure or discomfort. Normoactive bowel sounds. Abdomen soft, nontender. Right lower extremity edema. Positive, palpable pulses. Right I.J. Cordis. Sternal dressing intact. Right
groin puncture site intact. Right knee incision - Surgical adhesive - Intact - Open to air. Patient with no c/o back or flank pain. Roxicodone 5mg PO for pain management. CPAP HS. Assessment as documented.
[2024-10-06] MEDS: LIPITOR 40 MG PO (22:45)
[2024-10-06] MEDS: DILAUDID 0.25 MG IV (22:48)
[2024-10-07] VITALS (24 sets, daily range): BP systolic 94–166; BP diastolic 57–91; PULSE 97; O2SAT 96; BMI 27.7
--- NOTE | 2024-10-07 | PTCARENOTE ---
Patient sleeping without difficulty. No further changes from previous assessment.
[2024-10-07] MEDS: DILAUDID 0.25 MG IV (02:37)
--- NOTE | 2024-10-07 04:00 | PTCARENOTE ---
Patient A+A+Ox3. No neurological deficits noted. IV Dilaudid 0.25 mg and Roxicodone 5mg PO for pain management. Voided a total of 650 ml light fabienne urine. AM labs collected and sent. Patient resting in bed watching television. OOB in AM.
Assessment/Interventions as documented.
[2024-10-07] MEDS: TYLENOL 1000 MG PO ×3 (04:14→22:39)
[2024-10-07] MEDS: ROXICODONE 5 MG PO ×2 (04:15→22:40)
[2024-10-07 04:18] LABS: Ionized Calcium 1.16 mMOL/L (1.15-1.33)
--- NOTE | 2024-10-07 04:23 | W.PN.CT ---
Today's Communication / Plan
-
Plan:
-No major issues overnight. Hemodynamically and neurologically intact
-BP has been soft postop. Required Midodrine yesterday. BB on hold. Noted to be tachycardic with ambulation, increased Amiodarone to 400 mg TID
-Should be able to start low dose BB today
-Consider d/c of chest tubes: 2meds 20/100, R/L pleurals 70/110
-Cont. current meds (ASA, Plavix, Lipitor, Amiodarone, Toprol XL if BP permits)
-Encourage use of IS
-OOB into chair/Ambulate
-Home in 1-2 days
Assessment / Plan
-
MVCAD s/p CABG x 4 (SUSU to LAD, GSV to RPDA, sGSV to OM upper & lower branches), ELAA (45mm AtriClip), Pericardial patch repair of RA 10/05/[address] Veloz POD #2
ALEXANDER: EF�60%, normal biventricular function, no significant VHD, MARISSA confirmed excluded
EKG NSR with 1st degree block, PAC, QTc 480 ms
-MVCAD
-HLD
-OA
-Depression
-BPH
-ISRAEL on CPAP
-mild COPD
-IBS
-pre-diabetic
acute blood loss anemia - stable
acute post op atelectasis
acute post op cardiac rub /pericarditis
Discussed patient care with: Cardiology, Nursing, Respiratory Therapy, Pharmacy and Care Team
Subjective
-
Date of Service: October 07, 2024
Pt c/o mild incisional pain, otherwise feels well
Objective Data
-
PT 18.1 Sec (11.4-14.6) H 10/05/24 13:46
INR 1.44 10/05/24 13:46
APTT 33.6 Sec (23.4-35.0) 10/05/24 13:46
Vital Signs
Vital Signs
Temp Pulse Resp BP Pulse Ox
98.6 F 93 16 137/78 93
10/07/24 02:40 10/07/24 02:40 10/07/24 02:40 10/07/24 02:40 10/07/24 02:40
CT Intake/Output/Weight
10/06/24 10/06/24 10/07/24
06:59 18:59 06:59
Intake Total 689.9 / 1454.6 515.4 / 855.4 340 / 855.4
Output Total 630 / 1595 370 / 1110 740 / 1110
Balance 59.9 / -140.4 145.4 / -254.6 -400 / -254.6
SaO2: 93 (RA)
Physical Exam
-
General: Awake, Oriented and AOx3
Cardiovascular: Regular rate & rhythm, No Murmurs, No Rub and No Gallop
Respiratory: Decreased Breath Sounds (at bases, otherwise clear)
Sternum: Stable
Incision: Clean, Dry, Intact and Dressing Intact
Extremities: Other (+trace edema)
Data Reviewed
-
Lab Results: Results Reviewed
Medications: Active Meds Reviewed
Chest X-Ray: Report Reviewed and Image Reviewed
ECG: Report Reviewed and Image Reviewed
[2024-10-07 04:33] LABS: Hematocrit 30.1 % (39.0-52.0); Mean Corp Hgb Conc. 33.2 g/dL (33.0-37.0); Mean Corpuscular Volume 93.2 fL (80.0-94.0); Mean Platelet Volume 11.2 fL (7.4-10.4); Platelet Count 147 10^3/uL (130-400); Red Blood Cell Count 3.23 10^6/uL (4.70-6.10); Red Cell Dist. Width 13.2 % (11.5-14.5); White Blood Cell Count 13.3 10^3/uL (4.8-10.8)
[2024-10-07 05:00] LABS: Blood Urea Nitrogen 24 mg/dl (9-20); Calcium 8.1 mg/dl (8.4-10.2); Carbon Dioxide 25 mmol/L (22-30); Chloride 106 mmol/L (98-107); Estimated Creatinine Clearance 72 ml/min; Glucose 120 mg/dl (70-99); Magnesium 2.1 mg/dl (1.6-2.3); Potassium 4.3 mmol/L (3.5-5.1); Sodium 138 mmol/L (135-145); eGFR > 60.00
[2024-10-07] MEDS: CALCIUM GLUCONATE 290 MG IV (05:56)
[2024-10-07] MEDS: NSS 500 IV (05:57)
--- NOTE | 2024-10-07 08:00 | PTCARENOTE ---
Patient care assumed from nightshift RN. Pt OOB in chair, denies significant pain or needs for PRN relief. Fully alert and oriented. RIJ cordis intact. On room air. Lungs diminished bilaterally. Chest tubes x4 intact to wall suction. V-wire
insulated. Surgical dressings clean, dry, intact. +1 edema, non-pitting. 40mg PO lasix given, voiding without complications.
[2024-10-07] MEDS: VITAMIN C 500 MG PO (08:20)
[2024-10-07] MEDS: FEOSOL 325 MG PO (08:20)
[2024-10-07] MEDS: PLAVIX 75 MG PO (08:20)
[2024-10-07] MEDS: LASIX 40 MG PO (08:20)
[2024-10-07] MEDS: BACTROBAN 2% OINTMENT 1 APPLIC NASAL ×2 (08:20→19:24)
[2024-10-07] MEDS: MAGNESIUM OXIDE 500 MG PO ×2 (08:20→19:24)
[2024-10-07] MEDS: SENOKOT-S 1 TABLET PO (08:21)
[2024-10-07] MEDS: NEURONTIN 100 MG PO ×3 (08:21→22:39)
[2024-10-07] MEDS: PACERONE 400 MG PO ×3 (08:21→22:39)
[2024-10-07] MEDS: LIDOCAINE 4% PATCH 1 PATCH TOPICAL (08:21)
[2024-10-07] MEDS: PROTONIX 40 MG PO (08:21)
[2024-10-07] MEDS: TOPROL XL 12.5 MG PO ×2 (08:21→19:49)
[2024-10-07] MEDS: LOW STRENGTH ASPIRIN 81 MG PO (08:21)
--- NOTE | 2024-10-07 09:52 | W.PN.CD ---
Today's Communication / Plan
-
Cont routine care
OOB ambulating as able
Impression / Plan
-
79 y/o male (patient of Dr. Ford) with dyslipidemia, COPD, and multivessel CAD who is now s/p CABG.
CAD:
-s/p CABG x 4 (SUSU to LAD, GSV to RPDA, sGSV to OM upper & lower branches), ELAA (45mm AtriClip), Pericardial patch repair of RA, Dr. Veloz 10/05/24
-post-op EKG and tele: sinus
-intra-op ALEXANDER EF 60-65%
-continue ASA, plavix, statin, BB
Dyslipidemia:
-continue statin
Subjective: in chair conts feeling well no new complaints
Physical Exam
Vital Signs/Labs
Vital Signs
Temp Pulse Resp BP Pulse Ox
99.4 F 102 16 135/68 97
10/07/24 08:00 10/07/24 08:21 10/07/24 08:00 10/07/24 08:21 10/07/24 08:25
10/06/24 10/07/24 10/08/24
06:59 06:59 06:59
Actual Weight 194 lb 10.691 oz 198 lb 3.129 oz
10/07/24 04:04
10/07/24 04:04
PT 18.1 Sec (11.4-14.6) H 10/05/24 13:46
INR 1.44 10/05/24 13:46
APTT 33.6 Sec (23.4-35.0) 10/05/24 13:46
Magnesium 2.1 mg/dl (1.6-2.3) 10/07/24 04:04
Physical Exam
Constitutional: No acute distress and Comfortable
EENT: Anicteric
Cardiovascular: Rhythm & rate is regular, Pedal edema is absent and Rub present
Respiratory: Respiratory effort normal
GI: Soft
Neuro/Psych: AO x 3
Data Reviewed
-
Date of Service: October 07, 2024
EKG: Tracing Personally Visualized and interpreted (sr)
Echo: Report Reviewed by me
Labs: Labs Reviewed by me
--- NOTE | 2024-10-07 10:01 | W.PN.UPDATE ---
Update Note
Progress Note Update
No pacing required overnight. Temporary epicardial bipolar V lead removed without difficulty. Bedrest x 1 hour with vital signs every 15 minutes x 1 hour.
[2024-10-07] MEDS: ZOLOFT 100 MG PO (12:08)
[2024-10-07] MEDS: PROSCAR 5 MG PO (12:08)
--- NOTE | 2024-10-07 12:50 | PTCARENOTE ---
Vital signs stable. Chest tubes x4 removed, vaseline gauze and ABD dressing applied. Sutures remain intact. V-wire removed. Voiding without complication. OOB to bathroom, frequently ambulating. I.S encouraged. Tolerating meals. RIJ cordis remains
intact. Surgical dressings clean dry intact
--- NOTE | 2024-10-07 16:49 | PTCARENOTE ---
Patient vital signs stable. Ambulating to bathroom to void, collecting I&Os. Tolerating meals. Assessment unchanged. Denies pain. RIJ cordis intact with maintenance fluids. Surgical sites clean, dry, intact.
[2024-10-07] MEDS: TOPROL XL PO (19:24)
[2024-10-07] MEDS: SENOKOT-S PO ×2 (19:25→19:51)
--- NOTE | 2024-10-07 20:00 | PTCARENOTE ---
Patient received OOB in chair watching movie. Patient A+A+Ox3. No neurological deficits noted. No c/o pain or discomfort. Assist to bathroom with minimal assistance. Steady gait. No c/o headache, dizziness or lightheadedness. Positive Void.
No BM. Brushed teeth. Patient assisted to bed. Room air. SpO2 97%. Chest tube dressing intact. Sinus Rhythm - Sinus Tachycardia. Heart rate 90-100's. Blood pressure 103/57 (69). No c/o chest pain, pressure or discomfort. Normoactive bowel
sounds. Patient refused Senokot. Right I.J. Cordis intact. Sternal dressing intact. Right groin puncture site intact. Right knee incision intact - Surgical adhesive - Open to air. Positive palpable pulses. Lower extremity edema R>L. Patient
with no c/o back or flank pain. Assessment as documented.
[2024-10-07] MEDS: LIPITOR 40 MG PO (22:38)
[2024-10-08] VITALS (8 sets, daily range): BP systolic 92–137; BP diastolic 61–74; BMI 27.5
--- NOTE | 2024-10-08 | PTCARENOTE ---
Patient sleeping. Roxicodone 5mg PO for pain management. No further changes from previous assessment.
[2024-10-08 03:48] LABS: Hematocrit 28.6 % (39.0-52.0); Hemoglobin 9.7 g/dL (13.0-18.0); Mean Corp Hgb Conc. 33.9 g/dL (33.0-37.0); Mean Corpuscular Hgb 31.6 pg (27.0-31.0); Mean Corpuscular Volume 93.2 fL (80.0-94.0); Mean Platelet Volume 11.3 fL (7.4-10.4); Platelet Count 145 10^3/uL (130-400); Red Blood Cell Count 3.07 10^6/uL (4.70-6.10); Red Cell Dist. Width 13.1 % (11.5-14.5)
[2024-10-08 04:04] LABS: Blood Urea Nitrogen 21 mg/dl (9-20); Calcium 8.4 mg/dl (8.4-10.2); Carbon Dioxide 29 mmol/L (22-30); Chloride 105 mmol/L (98-107); Estimated Creatinine Clearance 81 ml/min; Glucose 112 mg/dl (70-99); Magnesium 1.9 mg/dl (1.6-2.3); Potassium 4.1 mmol/L (3.5-5.1); Sodium 139 mmol/L (135-145); eGFR > 60.00
--- NOTE | 2024-10-08 05:40 | W.PN.CT ---
Today's Communication / Plan
-
Plan:
-No major issues overnight. Hemodynamically and neurologically intact
-BP has been soft postop, improving. Tolerating low dose BB
-Tolerating increased Amiodarone to 400 mg TID, given tachycardia with ambulation
-Chest tubes and wires d/c'd yesterday 10/07
-D/C cordis
-Cont. current meds (ASA, Plavix, Lipitor, Amiodarone, Toprol XL)
-Encourage use of IS
-OOB into chair/Ambulate
-Home likely tomorrow
Assessment / Plan
-
MVCAD s/p CABG x 4 (SUSU to LAD, GSV to RPDA, sGSV to OM upper & lower branches), ELAA (45mm AtriClip), Pericardial patch repair of RA 10/05/[address] Veloz POD #3
ALEXANDER: EF�60%, normal biventricular function, no significant VHD, MARISSA confirmed excluded
EKG NSR with 1st degree block, PAC, QTc 480 ms
-MVCAD
-HLD
-OA
-Depression
-BPH
-ISRAEL on CPAP
-mild COPD
-IBS
-pre-diabetic
acute blood loss anemia - stable
acute post op atelectasis
acute post op cardiac rub /pericarditis
acute postop hypovolemia with subsequent hypervolemia
Discussed patient care with: Cardiology, Nursing, Respiratory Therapy, Pharmacy and Care Team
Subjective
-
Date of Service: October 08, 2024
Pt c/o mild incisional pain, otherwise feel well
Objective Data
-
Lab Results
10/08/24 03:30
10/08/24 03:30
PT 18.1 Sec (11.4-14.6) H 10/05/24 13:46
INR 1.44 10/05/24 13:46
APTT 33.6 Sec (23.4-35.0) 10/05/24 13:46
Vital Signs
Vital Signs
Temp Pulse Resp BP Pulse Ox
98.6 F 84 16 99/61 94
10/08/24 03:20 10/08/24 04:00 10/08/24 03:20 10/08/24 03:20 10/08/24 03:20
CT Intake/Output/Weight
10/07/24 10/07/24 10/08/24
06:59 18:59 06:59
Intake Total 650 / 1165.4 80 / 660 580 / 660
Output Total 770 / 1140 975 / 1275 300 / 1275
Balance -120 / 25.4 -895 / -615 280 / -615
SaO2: 94 (RA)
Physical Exam
-
General: Awake, Oriented and AOx3
Cardiovascular: Regular rate & rhythm, No Murmurs, No Rub and No Gallop
Respiratory: Decreased Breath Sounds (at bases, otherwise clear)
Sternum: Stable
Incision: Clean, Dry, Intact and Dressing Intact
Extremities: No Edema
Data Reviewed
-
Lab Results: Results Reviewed
Medications: Active Meds Reviewed
Chest X-Ray: Report Reviewed and Image Reviewed
ECG: Report Reviewed and Image Reviewed
[2024-10-08] MEDS: CALCIUM GLUCONATE 130 MG IV (06:19)
[2024-10-08] MEDS: TYLENOL 1000 MG PO ×3 (06:19→21:14)
--- NOTE | 2024-10-08 06:30 | PTCARENOTE ---
Patient A+A+Ox3. No neurological deficits noted. Patient assisted OOB to chair with minimal assistance. Standing scale weight 89.3 kg. Calcium Gluconate 3,000mg/100ml IV ordered by PA and infusing without difficulty. Assessment/Interventions as
documented.
[2024-10-08] MEDS: BACTROBAN 2% OINTMENT 1 APPLIC NASAL ×2 (08:43→20:28)
[2024-10-08] MEDS: MAGNESIUM OXIDE 500 MG PO ×2 (08:44→20:29)
[2024-10-08] MEDS: TOPROL XL 12.5 MG PO ×2 (08:44→12:31)
[2024-10-08] MEDS: ZOLOFT 100 MG PO (08:44)
[2024-10-08] MEDS: LOW STRENGTH ASPIRIN 81 MG PO (08:44)
[2024-10-08] MEDS: SENOKOT-S 1 TABLET PO (08:44)
[2024-10-08] MEDS: PACERONE 400 MG PO ×3 (08:44→21:15)
[2024-10-08] MEDS: NEURONTIN 100 MG PO ×3 (08:44→21:15)
[2024-10-08] MEDS: PROSCAR 5 MG PO (08:45)
[2024-10-08] MEDS: PLAVIX 75 MG PO (08:45)
[2024-10-08] MEDS: PROTONIX 40 MG PO (08:45)
[2024-10-08] MEDS: FEOSOL 325 MG PO (08:45)
[2024-10-08] MEDS: LIDOCAINE 4% PATCH 1 PATCH TOPICAL (08:45)
[2024-10-08] MEDS: VITAMIN C 500 MG PO (08:45)
--- NOTE | 2024-10-08 08:45 | PTCARENOTE ---
Received patient for 7a-7p shift. Patient AAOx3, without complaints, VSS, NSR on environmental monitoring specialist. Medications administered as tolerated. Pateint denies pain at this time. + bm, voiding without issues. Pt tolerating po intake. IS up to 2000 ml,
encouraged, tolerated. R IJ cordis infusing without complications. Instructed patient to call for assistance prior to ambulation. Pt demonstrates use of call franco. Will continue to monitor.
--- NOTE | 2024-10-08 12:00 | PTCARENOTE ---
VSS, NSR on quality assurance monitor final. Pt ambulatory in room and osborne without assistance. Medications administered as ordered. Patient denies pain at this time. Tolerating po intake. IS up to 2000, encouraged, tolerated. Will continue to monitor.
--- NOTE | 2024-10-08 12:03 | W.PN.CD ---
Today's Communication / Plan
-
Stable feels well
Ambulate as able
Impression / Plan
-
79 y/o male (patient of Dr. Ford) with dyslipidemia, COPD, and multivessel CAD who is now s/p CABG.
CAD:
-s/p CABG x 4 (SUSU to LAD, GSV to RPDA, sGSV to OM upper & lower branches), ELAA (45mm AtriClip), Pericardial patch repair of RA, Dr. Veloz 10/05/24
-post-op EKG and tele: sinus
-intra-op ALEXANDER EF 60-65%
-continue ASA, plavix, statin, BB
Dyslipidemia:
-continue statin
Subjective: in chair conts feeling well no new complaints, ambulating without complaitn
Physical Exam
Vital Signs/Labs
Vital Signs
Temp Pulse Resp BP Pulse Ox
98.7 F 96 18 110/71 96
10/08/24 08:44 10/08/24 08:44 10/08/24 08:44 10/08/24 08:44 10/08/24 10:40
10/07/24 10/08/24 10/09/24
06:59 06:59 06:59
Actual Weight 198 lb 3.129 oz 196 lb 13.965 oz
10/08/24 03:30
10/08/24 03:30
PT 18.1 Sec (11.4-14.6) H 10/05/24 13:46
INR 1.44 10/05/24 13:46
APTT 33.6 Sec (23.4-35.0) 10/05/24 13:46
Magnesium 1.9 mg/dl (1.6-2.3) 10/08/24 03:30
Physical Exam
Constitutional: No acute distress and Comfortable
EENT: Anicteric
Cardiovascular: Rhythm & rate is regular
Respiratory: Respiratory effort normal and Lungs clear to auscul.
GI: Soft
Neuro/Psych: AO x 3
Data Reviewed
-
Date of Service: October 08, 2024
Medical Decision Making: Reviewed Test Results
EKG: Tracing Personally Visualized and interpreted (sr)
Labs: Labs Reviewed by me
[2024-10-08] MEDS: NSS IV (18:38)
--- NOTE | 2024-10-08 20:27 | PTCARENOTE ---
received pt from mamie cooper. Pt AAOx4, VSS, NSR per tele monitor HR 80s. +pulses, trace edema throughout. lungs diminished pox 95% on RA. IS 1999. occasional non productive cough. +bs, pt voiding in bathroom. all surgical sites intact. PIVx1
flushes & intact. plan of care discussed questions encouraged
[2024-10-08] MEDS: TOPROL XL 25 MG PO (20:29)
[2024-10-08] MEDS: SENOKOT-S PO (20:29)
[2024-10-08] MEDS: LIPITOR 40 MG PO (21:15)
[2024-10-09] VITALS (7 sets, daily range): BP systolic 97–119; BP diastolic 56–71; PULSE 91; O2SAT 69–97; BMI 27.4
--- NOTE | 2024-10-09 00:25 | PTCARENOTE ---
VSS, NSR per tele monitor HR 70s, assessment remains unchanged
[2024-10-09] MEDS: ROXICODONE 2.5 MG PO (03:17)
[2024-10-09 03:54] LABS: Hematocrit 28.6 % (39.0-52.0); Hemoglobin 9.5 g/dL (13.0-18.0); Mean Corp Hgb Conc. 33.2 g/dL (33.0-37.0); Mean Corpuscular Hgb 31.4 pg (27.0-31.0); Mean Corpuscular Volume 94.4 fL (80.0-94.0); Mean Platelet Volume 11.1 fL (7.4-10.4); Platelet Count 161 10^3/uL (130-400); Red Blood Cell Count 3.03 10^6/uL (4.70-6.10); Red Cell Dist. Width 13.2 % (11.5-14.5); White Blood Cell Count 10.7 10^3/uL (4.8-10.8)
--- NOTE | 2024-10-09 04:14 | W.PN.CT ---
Today's Communication / Plan
-
Plan:
-No major issues overnight. Hemodynamically and neurologically intact
-BP has been soft postop, improved. Tolerating increased Toprol XL to 25 mg BID
-Tolerating increased Amiodarone to 400 mg TID, given tachycardia with ambulation
-Chest tubes and wires d/c'd 10/07
-F/U 2-view CXR
-Cont. current meds (ASA, Plavix, Lipitor, Amiodarone, Toprol XL)
-Encourage use of IS
-OOB into chair/Ambulate
-Home today
Assessment / Plan
-
MVCAD s/p CABG x 4 (SUSU to LAD, GSV to RPDA, sGSV to OM upper & lower branches), ELAA (45mm AtriClip), Pericardial patch repair of RA 10/05/[address] Veloz POD #4
ALEXANDER: EF�60%, normal biventricular function, no significant VHD, MARISSA confirmed excluded
EKG NSR with 1st degree block, PAC, QTc 480 ms
-MVCAD
-HLD
-OA
-Depression
-BPH
-ISRAEL on CPAP
-mild COPD
-IBS
-pre-diabetic
acute blood loss anemia - stable
acute post op atelectasis
acute post op cardiac rub /pericarditis
acute postop hypovolemia with subsequent hypervolemia
Discussed patient care with: Cardiology, Nursing, Respiratory Therapy, Pharmacy and Care Team
Subjective
-
Date of Service: October 09, 2024
Pt c/o mild incisional pain, otherwise feels well. Ambulating halls without difficulty
Objective Data
-
Lab Results
10/09/24 03:29
PT 18.1 Sec (11.4-14.6) H 10/05/24 13:46
INR 1.44 10/05/24 13:46
APTT 33.6 Sec (23.4-35.0) 10/05/24 13:46
Vital Signs
Vital Signs
Temp Pulse Resp BP Pulse Ox
98.3 F 76 18 119/71 95
10/09/24 03:38 10/09/24 03:14 10/09/24 03:38 10/09/24 03:14 10/09/24 03:38
CT Intake/Output/Weight
10/08/24 10/08/24 10/09/24
06:59 18:59 06:59
Intake Total 700 / 780 370 / 370
Output Total 500 / 1475 360 / 1135 775 / 1135
Balance 200 / -695 10 / -765 -775 / -765
SaO2: 95 (RA)
Physical Exam
-
General: Awake, Oriented and AOx3
Cardiovascular: Regular rate & rhythm, No Murmurs, No Rub and No Gallop
Respiratory: Decreased Breath Sounds (at bases, otherwise clear)
Sternum: Stable
Incision: Clean, Dry, Intact and Dressing Intact
Extremities: Other (+trace edema)
Data Reviewed
-
Lab Results: Results Reviewed
Medications: Active Meds Reviewed
Chest X-Ray: Report Reviewed and Image Reviewed
ECG: Report Reviewed and Image Reviewed
[2024-10-09 04:16] LABS: Blood Urea Nitrogen 16 mg/dl (9-20); Calcium 8.6 mg/dl (8.4-10.2); Carbon Dioxide 30 mmol/L (22-30); Chloride 106 mmol/L (98-107); Estimated Creatinine Clearance 72 ml/min; Glucose 109 mg/dl (70-99); Potassium 4.2 mmol/L (3.5-5.1); Sodium 142 mmol/L (135-145); eGFR > 60.00
--- NOTE | 2024-10-09 04:19 | PTCARENOTE ---
routine labs obtained, VSS, NSR per tele monitor, pt c/o pain around incision site. SEE MAR otherwise assessment remains unchanged
[2024-10-09] MEDS: TYLENOL 1000 MG PO (05:58)
--- NOTE | 2024-10-09 08:23 | W.DCSUMMARY ---
Discharge Summary
Discharge Data
Date of Admission: 10/05/24
Date of Discharge: 10/09/24
-
Pending Results: No
Hospital Course
Primary care physician: Rusty Marcum
Outpatient biomass power plant manager: Arnie Ford
Inpatient consultants: [facility] Cardiology, pulmonary instructor nurse
Procedures:
1. CABG, left atrial appendage clip
Primary Diagnosis:
1. Multivessel coronary disease
Secondary Diagnoses:
1. Hyperlipidemia
2. BPH
3. Osteoarthritis
4. Depression
5. Mild COPD
6. Bilateral inguinal hernia repair
7. Acute postoperative hypotension�expected
8. acute blood loss anemia - expected
9. acute post op atelectasis
10. acute post op cardiac rub /pericarditis
HPI: 79-year-old male was electively admitted on for CABG due to multivessel coronary disease
Hospital course: Patient proceeded to the operating room and underwent CABG x 4 (SUSU to LAD, GSV to RPDA, GSV to OM upper & lower branches), ELAA (45mm AtriClip), and pericardial patch repair of RA by Dr. Boogie Veloz. Patient received no
intraoperative blood products. Postprocedure ALEXANDER reported EF of 55-60%. Patient returned to CVICU on Cardene, Levophed, insulin, Precedex. Patient is extubated 6015 the day of surgery. Cardene was weaned off and Levophed maintained for expected
postoperative hypotension. Aspirin and Plavix were initiated on postoperative day 1. Bilateral pleural intubated central chest tubes along with epicardial wires removed without difficulty on postoperative day #2. Metoprolol tartrate dose was
increased to 25 mg twice daily due to heart rate in the 80s to 90s. Right IJ was removed. Patient ambulated halls with cardiac rehab and was deemed steady on feet for home disposition at discharge. On POD #5, Hb 9.5 and creatinine 0.9. Sternal
incision intact without erythema. Patient had 2 view CXR which reported no pneumothorax and small left pleural effusion. Lasix 20mg prn (for weight gain >3 pounds/day or 5 pounds/week) ordered. Patient deemed stable for discharge home with
transitional nurse follow-up.
Home medication changes:
Stop: Amlodipine as BP low normal range in hospital
Add: Lasix 20mg daily prn weight gain 3 pounds in a day or 5 pounds in a week
Discharge Plan
-
Patient Disposition: Home (Routine Discharge)
Discharge Diagnosis/Procedures: CABG x 4, left atrial appendage clip, patch repair RA
Condition: Good
Diet: Low Cholesterol and Low Sodium
Activity: No strenuous activity
Driving Restrictions: Not until seen by your Dr
Bathing Restrictions: OK to Shower
Other Services: Cardiac Rehab
Specialty Instructions: Weigh Daily- Call MD for wt gain/loss 3 lbs overnight/5 lbs in 1 week
Activity Restrictions/Additional Instructions:
ACTIVITY:
-No strenuous activity: no heavy lifting, pushing, pulling anything over 15 pounds for one month
-continue to use stairs as tolerated
DRIVING RESTRICTIONS:
-No driving for one month or until approved by your surgeon
WOUND CARE:
-Shower daily. Use soap & water.
-No lotions, creams or powders on incision area.
DIET:
-continue a low fat/low cholesterol diet.
-IF you are diabetic, continue carb controlled diet.
CARDIAC REHAB:
-Please make appointment to start in 5-6 weeks with your local hospital program. (See Cardiac Rehabilitation Discharge Booklet).
SPECIALTY INSTRUCTIONS:
-Weigh yourself daily. Call your physician for any weight gain/loss of 3 lbs overnight or 5 lbs in one week or if you have taken a furosemide tablet
-REPORT any clicking noise or uneven appearance of your sternum to your surgeon immediately.
-If you smoke, you are instructed to quit. The OR smoking hotline phone number is [phone]
Referrals:
CT Transitional Care Nurse [Outside] (The Cardiothoracic Transitional Care Nurse will call you to set up a visit in 1-2 days.)
[facility]. Cardiac Rehab [Outside] - 11/17/24 1:00 pm
(Cardiac Rehab Orientation appointment is on 11/17/24 at 1:00 pm
The Cardiac Rehab gym is located on the first floor of the [facility].)
Natividad Jones CRNP [Specified Professional Personl] - 11/22/24 10:00 am
Rusty Marcum MD [Family Provider] -
Boogie Veloz MD [Active] - 11/07/24 2:30 pm
Prescriptions:
New
acetaminophen 325 mg Tablet
650 mg PO Q4HPRN PRN (Reason: mild pain,headache,temp >101F ) Qty: 0 0RF
clopidogrel 75 mg Tablet
75 mg PO DAILY Qty: 30 2RF
pantoprazole 40 mg Tablet,Delayed Release (Dr/Ec)
40 mg PO DAILY Qty: 30 2RF
ferrous sulfate [FeroSul] 325 mg (65 mg iron) Tablet
325 mg PO DAILY Qty: 30 0RF
gabapentin 100 mg Capsule
100 mg PO TID Qty: 30 0RF
metoprolol succinate 25 mg Tablet Extended Release 24 Hr
25 mg PO BID Qty: 60 2RF
oxycodone 5 mg Tablet
5 mg PO Q4HPRN PRN (Reason: severe pain) Qty: 10 0RF
furosemide [Lasix] 20 mg tablet
20 mg PO DAILY PRN (Reason: fluid retention/swelling) Qty: 10 0RF
Rx Instructions:
take for 3lb weight gain overnight/5lb gain in a week
Continued
sertraline 100 mg Tablet
100 mg PO DAILY
ascorbic acid (vitamin C) [Vitamin C] 500 mg Tablet
500 mg PO DAILY
aspirin 81 mg Tablet
81 mg PO DAILY
finasteride 5 mg Tablet
5 mg PO DAILY
cholecalciferol (vitamin D3) [Vitamin D3] 50 mcg (2,000 unit) Capsule
50 mcg PO DAILY
coQ10 (ubiquinol) 100 mg Capsule
100 mg PO DAILY
rosuvastatin 20 mg tablet
20 mg PO DAILY
Discontinued
metoprolol succinate 25 mg Tablet Extended Release 24 Hr
12.5 mg PO DAILY
apple cider vinegar 300 mg Tablet
300 mg PO DAILY
Probiotic 10 billion cell Capsule
10,000 mmu cells PO DAILY
Vital Liver Support
1 cap PO DAILY
Vitamin Tocotrienols
125 mg PO DAILY
nitroglycerin 0.4 mg tablet, sublingual
0.4 mg sublingual [id number] PRN (Reason: chest pain) Qty: 25 5RF
Patient Comments:
Not Taken
amlodipine 2.5 mg tablet
2.5 mg PO DAILY
Discharge Orders:
Discharge Patient (As Directed); Ordered 10/09/24
Ordered By: Ree Flynn
Care Plan Goals
Care Plan Goals:
Problem: Readiness for enhanced knowledge related to diagnosis and treatment plan
Goal: Understand your diagnosis and treatment plan needs, including medications if applicable.
Instructions: Know your diagnosis, underlying causes and treatment plan options, including medications if applicable. Consult with your health care team to learn about your diagnosis and treatment plan, including medications if applicable.
Discharge Date and Time
Print Language: NEPALI
[2024-10-09] MEDS: VITAMIN C 500 MG PO (08:24)
[2024-10-09] MEDS: PROTONIX 40 MG PO (08:24)
[2024-10-09] MEDS: ZOLOFT 100 MG PO (08:24)
[2024-10-09] MEDS: PACERONE 400 MG PO (08:25)
[2024-10-09] MEDS: TOPROL XL 25 MG PO (08:25)
[2024-10-09] MEDS: MAGNESIUM OXIDE 500 MG PO (08:25)
[2024-10-09] MEDS: FEOSOL 325 MG PO (08:25)
[2024-10-09] MEDS: NEURONTIN 100 MG PO (08:26)
[2024-10-09] MEDS: SENOKOT-S 1 TABLET PO (08:26)
[2024-10-09] MEDS: PROSCAR 5 MG PO (08:26)
[2024-10-09] MEDS: PLAVIX 75 MG PO (08:26)
[2024-10-09] MEDS: LOW STRENGTH ASPIRIN 81 MG PO (08:27)
[2024-10-09] MEDS: LIDOCAINE 4% PATCH TOPICAL (08:27)
[2024-10-09] MEDS: BACTROBAN 2% OINTMENT 1 APPLIC NASAL (08:28)
[2024-10-09] MEDS: NSS IV (08:28)
--- NOTE | 2024-10-09 10:41 | PTCARENOTE ---
SR 70s. AAOx3. VSS. 97% RA, walking independently. steps done with cardiac rehab and sent for 2 view CXR. hopeful d/c this afternoon.
--- NOTE | 2024-10-09 11:33 | CM ---
dc plans remain, home with and f/u visit from the ctrn.
--- NOTE | 2024-10-09 11:52 | PTCARENOTE ---
Assumed care of patient. VSS. Sternal dressing d/c, incision well approximated. Discharge order received. Assisted to shower.
--- NOTE | 2024-10-09 12:30 | PTCARENOTE ---
Pt tolerated shower. PIV d/c. All discharge instructions and medications reviewed with patient and . Pt states understanding. Teach back used. All questions answered. All belongings sent home with pt. Wheeled out to wheelchair via transport.
== END 2024-10-09 13:32 | disposition home or self-care (01) | DRG 236 ==
LOC: CVICU 05:09
PROVIDERS: Anesthesiology; Nurse Practitioner; ADMITTING PHYSICIAN Thoracic Surgery (Cardiothoracic Vascular Surgery); CONSULT PHYSICIAN Internal Medicine; CONSULT PHYSICIAN Internal Medicine Cardiovascular Disease; FAMILY PHYSICIAN Internal Medicine
PROC: 5A1221Z Performance of Cardiac Output, Continuous (ICD-10-PCS; 2024-10-05)
PROC: 02L70CK Occlusion of Left Atrial Appendage with Extraluminal Device, Open Approach (ICD-10-PCS; 2024-10-05)
PROC: 021209W Bypass Coronary Artery, Three Arteries from Aorta with Autologous Venous Tissue, Open Approach (ICD-10-PCS; 2024-10-05)
PROC: B24BZZ4 Ultrasonography of Heart with Aorta, Transesophageal (ICD-10-PCS; 2024-10-05)
PROC: 02100ZC Bypass Coronary Artery, One Artery from Thoracic Artery, Open Approach (ICD-10-PCS; 2024-10-05)
PROC: 06BP4ZZ Excision of Right Saphenous Vein, Percutaneous Endoscopic Approach (ICD-10-PCS; 2024-10-05)
PROC: 02U Heart and Great Vessels, Supplement (ICD-10-PCS; 2024-10-05)
DX: I25.110 Atherosclerotic heart disease of native coronary artery with unstable angina pectoris (principal); I97.51 Accidental puncture and laceration of a circulatory system organ or structure during a circulatory system procedure; D62 Acute posthemorrhagic anemia; J98.11 Atelectasis; I30.8 Other forms of acute pericarditis; I95.81 Postprocedural hypotension; Y83.2 Surgical operation with anastomosis, bypass or graft as the cause of abnormal reaction of the patient, or of later complication, without mention of misadventure at the time of the procedure; F32.A Depression, unspecified; N40.0 Benign prostatic hyperplasia without lower urinary tract symptoms; J44.9 Chronic obstructive pulmonary disease, unspecified; E78.5 Hyperlipidemia, unspecified; M19.90 Unspecified osteoarthritis, unspecified site; M81.0 Age-related osteoporosis without current pathological fracture; G47.33 Obstructive sleep apnea (adult) (pediatric); R73.03 Prediabetes; K58.9 Irritable bowel syndrome, unspecified; Z87.891 Personal history of nicotine dependence; Z79.82 Long term (current) use of aspirin
CPT/HCPCS: 36415; 71045; 71046; 71250; 80048; 80053; 81003; 81015; 82248; 82330; 82565; 82805; 82947; 82962; 83036; 83735; 84132; 84302; 84520; 85014; 85018; 85025; 85027; 85049; 85610; 85730; 86850; 86900; 86901; 86920; 87070; 93005; 93306; 93312; 93320; 93325; 93880; 94002

== ENCOUNTER → 2024-10-17 12:54 | Outpatient (REF) | payer MEDICARE, OTHER, SELFPAY | LOC: RCS 12:54 | PROVIDERS: ATTENDING PHYSICIAN Nurse Practitioner Acute Care; FAMILY PHYSICIAN Internal Medicine | DX: Z95.1 Presence of aortocoronary bypass graft (principal) | CPT/HCPCS: 93005 ==

== ENCOUNTER → 2024-10-18 09:07 | Outpatient (REF) | payer MEDICARE, OTHER, SELFPAY ==
[2024-10-18 10:38] LABS: % Basophils 0.5 % (0-2); % Eosinophils 1.9 % (0-6); % Lymphocytes 9.3 % (20.5-51.1); % Monocytes 4.9 % (1.7-9.3); % Neutrophils 82.4 % (42.2-75.2); Absolute Basophils 0.1 10^3/uL (0-0.2); Absolute Eosinophils 0.2 10^3/uL (0-0.7); Absolute Immature Granulocytes 0.1 10^3/uL (0-0.05); Absolute Lymphocytes 1.1 10^3/uL (1.2-3.4); Absolute Monocytes 0.6 10^3/uL (0.1-0.6); Absolute Neutrophils 9.7 10^3/uL (1.4-6.5); Hematocrit 30.2 % (39.0-52.0); Hemoglobin 9.5 g/dL (13.0-18.0); Mean Corp Hgb Conc. 31.5 g/dL (33.0-37.0); Mean Corpuscular Hgb 30.1 pg (27.0-31.0); Mean Corpuscular Volume 95.6 fL (80.0-94.0); Mean Platelet Volume 10.1 fL (7.4-10.4); Nucleated Red Blood Cells % 0 % (-); Platelet Count 339 10^3/uL (130-400); Red Blood Cell Count 3.16 10^6/uL (4.70-6.10); Red Cell Dist. Width 13.2 % (11.5-14.5); White Blood Cell Count 11.8 10^3/uL (4.8-10.8)
[2024-10-18 11:11] LABS: ALT (SGPT) 30 U/L (0-50); AST (SGOT) 23 U/L (17-59); Alkaline Phosphatase 59 U/L (38-126); Direct Bilirubin 0.2 mg/dl (0.0-0.4); Total Bilirubin 0.5 mg/dl (0.2-1.3)
[2024-10-18 11:33] LABS: TSH Reflex To Free T4 3.05 uIU/ml (0.47-4.68)
== END ==
LOC: REG 09:07
PROVIDERS: ATTENDING PHYSICIAN Internal Medicine Cardiovascular Disease; FAMILY PHYSICIAN Internal Medicine
DX: T46.2X Poisoning by, adverse effect of and underdosing of other antidysrhythmic drugs (principal); I31.9 Disease of pericardium, unspecified
CPT/HCPCS: 36415; 80076; 84443; 85025

== ENCOUNTER 2024-12-11 14:39 | Outpatient (RCR) | payer MEDICARE, OTHER, SELFPAY | END 2024-12-11 23:59 | disposition home or self-care (01) | LOC: CRHB 14:39 | PROVIDERS: ATTENDING PHYSICIAN Internal Medicine Cardiovascular Disease | DX: I25.10 Atherosclerotic heart disease of native coronary artery without angina pectoris (principal); Z95.1 Presence of aortocoronary bypass graft (principal) | CPT/HCPCS: G0422; G0423 ==

== ENCOUNTER → 2025-01-05 14:40 | Outpatient (REF) | payer MEDICARE, OTHER, SELFPAY ==
[2025-01-05 15:41] LABS: Hematocrit 37.1 % (39.0-52.0); Hemoglobin 11.8 g/dL (13.0-18.0); Mean Corp Hgb Conc. 31.8 g/dL (33.0-37.0); Mean Corpuscular Volume 91.4 fL (80.0-94.0); Nucleated Red Blood Cells % 0 % (-); Platelet Count 173 10^3/uL (130-400); Red Cell Dist. Width 14.4 % (11.5-14.5); Reticulocyte Count 1.2 % (0.4-2.8)
[2025-01-05 15:59] LABS: Iron 75 ug/dl (49-181)
[2025-01-05 16:09] LABS: Total Iron Binding Capacity 358 ug/dl (261-462)
== END ==
LOC: REG 14:40
PROVIDERS: ATTENDING PHYSICIAN Internal Medicine
DX: D64.89 Other specified anemias (principal); D62 Acute posthemorrhagic anemia
CPT/HCPCS: 36415; 83540; 83550; 85025; 85045

== ENCOUNTER 2025-01-10 13:41 | Outpatient (RCR) | payer MEDICARE, OTHER, SELFPAY | END 2025-01-10 23:59 | disposition home or self-care (01) | LOC: CRHB 13:41 | PROVIDERS: ATTENDING PHYSICIAN Internal Medicine Cardiovascular Disease; FAMILY PHYSICIAN Internal Medicine | DX: Z95.1 Presence of aortocoronary bypass graft (principal) | CPT/HCPCS: G0422; G0423 ==

== ENCOUNTER 2025-02-09 14:04 | Outpatient (RCR) | payer MEDICARE, OTHER, SELFPAY | END 2025-02-09 23:59 | disposition home or self-care (01) | LOC: CRHB 14:04 | PROVIDERS: ATTENDING PHYSICIAN Internal Medicine Cardiovascular Disease; FAMILY PHYSICIAN Internal Medicine | DX: I25.10 Atherosclerotic heart disease of native coronary artery without angina pectoris (principal); Z95.1 Presence of aortocoronary bypass graft | CPT/HCPCS: G0422; G0423 ==

== ENCOUNTER 2025-02-21 14:07 | Outpatient (RCR) | payer MEDICARE, OTHER, SELFPAY ==
[2025-02-15 12:34] LABS: HDL Cholesterol 50 mg/dl; LDL Cholesterol, Calculated 59 mg/dl; Very Low Density Lipoprotein 21 mg/dl (0-30)
== END 2025-02-21 14:40 | disposition home or self-care (01) ==
LOC: CRHB 14:07
PROVIDERS: ATTENDING PHYSICIAN Internal Medicine Cardiovascular Disease; FAMILY PHYSICIAN Internal Medicine
DX: I25.10 Atherosclerotic heart disease of native coronary artery without angina pectoris (principal); Z95.1 Presence of aortocoronary bypass graft
CPT/HCPCS: 36415; 80061; G0422; G0423

== ENCOUNTER → 2025-03-15 10:47 | Outpatient (REF) | payer MEDICARE, OTHER, SELFPAY ==
[2025-03-15 11:31] LABS: Hematocrit 41.7 % (39.0-52.0); Hemoglobin 13.5 g/dL (13.0-18.0); Mean Corp Hgb Conc. 32.4 g/dL (33.0-37.0); Mean Corpuscular Volume 91.2 fL (80.0-94.0); Nucleated Red Blood Cells % 0 % (-); Platelet Count 169 10^3/uL (130-400); Red Cell Dist. Width 15.1 % (11.5-14.5)
[2025-03-15 13:31] LABS: ALT (SGPT) 16 U/L (0-50); AST (SGOT) 18 U/L (17-59); Albumin 4.7 g/dl (3.5-5.0); Alkaline Phosphatase 47 U/L (38-126); Blood Urea Nitrogen 13 mg/dl (9-20); Calcium 9.2 mg/dl (8.4-10.2); Carbon Dioxide 32 mmol/L (22-30); Chloride 107 mmol/L (98-107); Glucose 92 mg/dl (70-99); HDL Cholesterol 51 mg/dl; LDL Cholesterol, Calculated 70 mg/dl; Potassium 4.9 mmol/L (3.5-5.1); Sodium 144 mmol/L (135-145); Total Protein 6.9 g/dl (6.3-8.2); Very Low Density Lipoprotein 17 mg/dl (0-30); eGFR > 60.00
[2025-03-15 14:16] LABS: TSH 2.18 uIU/ml (0.47-4.68)
== END ==
LOC: REG 10:47
PROVIDERS: ATTENDING PHYSICIAN Internal Medicine; REFERRING PHYSICIAN Nurse Practitioner Gerontology
DX: Z95.1 Presence of aortocoronary bypass graft (principal); I25.10 Atherosclerotic heart disease of native coronary artery without angina pectoris; E78.00 Pure hypercholesterolemia, unspecified; I48.0 Paroxysmal atrial fibrillation; N40.0 Benign prostatic hyperplasia without lower urinary tract symptoms; D50.0 Iron deficiency anemia secondary to blood loss (chronic); G47.33 Obstructive sleep apnea (adult) (pediatric); Z09 Encounter for follow-up examination after completed treatment for conditions other than malignant neoplasm
CPT/HCPCS: 36415; 80053; 80061; 84443; 85025